=== PATIENT | female | born 1990 | race Caucasian/White ===

== ENCOUNTER 2016-11-24 09:34 | Emergency (ER) | payer MEDICAID ==
[~2016-11-24] VITALS: Ht 167.6 cm; Wt 59.0 kg
[2016-11-24 09:36] VITALS: BP 128/77
[2016-11-24] MEDS ORDERED: ADVI200C5 PO (09:39)
[2016-11-24] MEDS ORDERED: AMOX500C PO (10:14)
[2016-11-24] MEDS ORDERED: AMOXICILLIN 500 MG CAP PO ONE (10:15)
[2016-11-24] MEDS ORDERED: ACETAMINOPHEN 325 MG TAB PO ONE (10:15)
== END 2016-11-24 10:33 | disposition home or self-care (01) ==
LOC: M ED 10:25
DX: H65.191 Other acute nonsuppurative otitis media, right ear (principal); J06.9 Acute upper respiratory infection, unspecified

== ENCOUNTER 2016-12-06 03:48 | Emergency (ER) | payer MEDICAID, OTHER ==
[~2016-12-06] VITALS: Ht 167.6 cm; Wt 59.0 kg
[~2016-12-06 03:48] MED LIST: ADVI200C5 PO; AMOX500C PO
[2016-12-06] MEDS ORDERED: IBUPROFEN 800 MG TAB PO ONE (06:30)
[2016-12-06] MEDS ORDERED: AUGMENTIN 875 MG TAB PO ONE (06:30)
[2016-12-06] MEDS ORDERED: CIPROFLOXACIN HC OTIC SUSPENSION AD ONE (06:30)
[2016-12-06] MEDS ORDERED: CIPRHCOTIC AD (06:32)
[2016-12-06] MEDS ORDERED: AUGM875T27 PO (06:32)
[2016-12-06] MEDS ORDERED: IBUP80TA PO (06:32)
[2016-12-06 06:56] VITALS: BP 129/79
== END 2016-12-06 06:59 | disposition home or self-care (01) ==
LOC: M ED 04:43
DX: H66.93 Otitis media, unspecified, bilateral (principal); H60.91 Unspecified otitis externa, right ear

== ENCOUNTER → 2016-12-21 | Outpatient (REF) | payer OTHER ==
[~2016-12-21] MED LIST changes: +AUGM875T27 PO; +CIPRHCOTIC AD; +IBUP80TA PO
[2016-12-21 20:04] LABS: ALBUMIN 4.1 GM/DL (3.2-5.2); ALBUMIN/GLOBULIN RATIO 1.41 (1.00-1.93); ALKALINE PHOSPHATASE 95 U/L (45-117); ALT/SGPT 16 U/L (12-78); ANION GAP 7 MEQ/L (8-16); AST/SGOT 10 U/L (15-37); BILIRUBIN,TOTAL 0.4 MG/DL (0.2-1.0); BLOOD UREA NITROGEN 6 MG/DL (7-18); CALCIUM LEVEL 8.9 MG/DL (8.5-10.1); CARBON DIOXIDE LEVEL 26 MEQ/L (21-32); CHLORIDE LEVEL 108 MEQ/L (98-107); CHOLESTEROL LEVEL 154 MG/DL (<200); CREATININE FOR GFR 0.71 MG/DL (0.55-1.02); GLOMERULAR FILTRATION RATE > 60.0 (>60); GLUCOSE, FASTING 70 MG/DL (70-105); POTASSIUM SERUM 3.7 MEQ/L (3.5-5.1); SODIUM LEVEL 141 MEQ/L (136-145); TRIGLYCERIDES LEVEL 77 MG/DL (<150)
== END ==
LOC: M LAB REF 16:40
PROVIDERS: ATTEND Family Medicine Addiction Medicine
DX: Z00.01 Encounter for general adult medical examination with abnormal findings (principal)

== ENCOUNTER → 2017-01-30 | Outpatient (CLI) | payer OTHER ==
[~2017-01-30] MED LIST changes: -AUGM875T27 PO; +AUGM875T28 PO; +CHAN1PAK9; +MIREIUD IU
[2017-01-30 13:38] LABS: THYROXINE (T4) 9.7 UG/DL (4.5-12.0)
== END ==
LOC: M SMT 09:15
PROVIDERS: ATTEND Advanced Practice Midwife
DX: F32.89 Other specified depressive episodes (principal); Z11.3 Encounter for screening for infections with a predominantly sexual mode of transmission

== ENCOUNTER → 2017-01-31 | Outpatient (CLI) | payer OTHER ==
--- NOTE | 2017-02-01 06:38 | REP ---
Clinical: Dyspareunia . Technique: Transabdominal pelvic ultrasound followed by transvaginal examination for better evaluation of the endometrium and adnexa with color Doppler evaluation of the ovaries. Findings: Bladder is under distended and grossly unremarkable. Normal anteverted uterus measures 8.2 x 3.2 x 4.9 cm. The endometrial complex measures 4.5 mm thickness. No discrete uterine or endometrial abnormalities are appreciated. IUD is identified with tip extending to the fundus. Bilateral ovaries are normal in appearance and vascularity without evidence for torsion. Right ovary measures 4.4 x 2.2 x 3.6 cm ; R I = 0.59 . Left ovary measures 4.0 x 2.5 x 3.5 cm ; R I = 0.45 . No pelvic fluid or adnexal mass lesion . Impression: 1. normal pelvic ultrasound. 2. IUD in satisfactory position. Signed by Thomas Baumann MD 02/01/2017 06:30 A
== END ==
LOC: M RAD 14:00
PROVIDERS: ATTEND Advanced Practice Midwife
DX: N94.12 Deep dyspareunia (principal)

== ENCOUNTER 2017-03-29 06:14 | Emergency (ER) | payer OTHER ==
[~2017-03-29] VITALS: Ht 167.6 cm; Wt 59.1 kg
[~2017-03-29 06:14] MED LIST changes: -CHAN1PAK9; -MIREIUD IU
[2017-03-29] MEDS ORDERED: CHAN1PAK9 (06:32)
[2017-03-29] MEDS ORDERED: MIREIUD IU (06:34)
[2017-03-29] MEDS ORDERED: diphenhydrAMINE INJ 50MG/ML VIAL (J1200) IV ONE (07:00)
[2017-03-29] MEDS ORDERED: NS 1,000 ML IV ONE (07:00)
[2017-03-29] MEDS ORDERED: KETOROLAC 30 MG/ML VIAL (J1885) IV ONE (07:00)
[2017-03-29] MEDS ORDERED: METOCLOPRAMIDE INJ 10MG/2ML VIAL (J2765) IV ONE (07:00)
[2017-03-29 07:27] LABS: BASO # 0.1 10^3/uL (0.0-0.2); BASO % 0.5 % (0.0-1.0); EOS # 0.2 10^3/uL (0.0-0.50); EOS % 2.5 % (0.0-3.0); IMMATURE GRANULOCYTE % 0.3 % (0-0); LYMPH # 1.8 10^3/uL (1.5-6.5); LYMPH % 18.2 % (24.0-44.0); MEAN CORPUSCULAR HEMOGLOBIN 29.2 pg (27.0-33.0); MEAN CORPUSCULAR HGB CONC 33.7 g/dl (32.0-36.5); MEAN CORPUSCULAR VOLUME 86.7 fl (80.0-96.0); MONO # 0.5 10^3/uL (0.0-0.8); MONO % 5.6 % (0.0-5.0); NEUTROPHILS % 72.9 % (36.0-66.0); PLATELET COUNT, AUTOMATED 205 10^3/uL (150-450); RED CELL DISTRIBUTION WIDTH 13.2 % (11.5-14.5); WHITE BLOOD COUNT 9.6 10^3/uL (4.0-10.0)
[2017-03-29 07:43] LABS: ANION GAP 6 MEQ/L (8-16); BLOOD UREA NITROGEN 7 MG/DL (7-18); CALCIUM LEVEL 8.5 MG/DL (8.5-10.1); CARBON DIOXIDE LEVEL 27 MEQ/L (21-32); CHLORIDE LEVEL 111 MEQ/L (98-107); CREATININE FOR GFR 0.55 MG/DL (0.55-1.02); GLOMERULAR FILTRATION RATE > 60.0 (>60); GLUCOSE, FASTING 85 MG/DL (70-105); POTASSIUM SERUM 3.7 MEQ/L (3.5-5.1); SODIUM LEVEL 144 MEQ/L (136-145)
[2017-03-29] MEDS ORDERED: MORPHINE 4 MG/ML 1ML SYRINGE IV ONE (08:30)
[2017-03-29 09:42] VITALS: BP 119/63
== END 2017-03-29 09:48 | disposition home or self-care (01) ==
LOC: M ED 06:14
DX: G43.909 Migraine, unspecified, not intractable, without status migrainosus (principal); F17.200 Nicotine dependence, unspecified, uncomplicated
CPT/HCPCS: 80048; 85025; 96374; 96375; 99283; J1200; J1885; J2765

== ENCOUNTER 2019-01-03 14:26 | Emergency (ER) | payer OTHER ==
[~2019-01-03] VITALS: Ht 167.6 cm; Wt 54.8 kg
[~2019-01-03 14:26] MED LIST changes: +CHAN1PAK13; +MIRE1IUD IU
[2019-01-03 15:16] LABS: BASO # 0.1 10^3/uL (0.0-0.2); BASO % 0.3 % (0.0-1.0); EOS # 0.1 10^3/uL (0.0-0.50); EOS % 0.6 % (0.0-3.0); HEMATOCRIT 39.5 % (36.0-47.0); HEMOGLOBIN 13.1 g/dl (12.0-15.5); LYMPH % 5.7 % (24.0-44.0); MEAN CORPUSCULAR HEMOGLOBIN 30.8 pg (27.0-33.0); MEAN CORPUSCULAR HGB CONC 33.2 g/dl (32.0-36.5); MEAN CORPUSCULAR VOLUME 92.7 fl (80.0-96.0); MONO # 0.5 10^3/uL (0.0-0.8); NEUTROPHILS # 15.6 10^3/uL (1.8-7.7); PLATELET COUNT, AUTOMATED 177 10^3/uL (150-450); RED BLOOD COUNT 4.26 10^6/uL (4.00-5.40); WHITE BLOOD COUNT 17.3 10^3/uL (4.0-10.0)
[2019-01-03 15:40] LABS: ALBUMIN 3.3 GM/DL (3.2-5.2); ALT/SGPT 35 U/L (12-78); BILIRUBIN,TOTAL 0.6 MG/DL (0.2-1.0); BLOOD UREA NITROGEN 6 MG/DL (7-18); CARBON DIOXIDE LEVEL 26 MEQ/L (21-32); CHLORIDE LEVEL 111 MEQ/L (98-107); CREATININE FOR GFR 0.66 MG/DL (0.55-1.30); GLOMERULAR FILTRATION RATE > 60.0 (>60); GLUCOSE, FASTING 92 MG/DL (70-100); POTASSIUM SERUM 3.6 MEQ/L (3.5-5.1); SODIUM LEVEL 144 MEQ/L (136-145); TOTAL PROTEIN 6.3 GM/DL (6.4-8.2)
--- NOTE | 2019-01-03 15:42 | REP ---
Clinical: Cough and fever Comparison: none . Technique: PA and lateral. Findings: The mediastinum and cardiac silhouette are normal. The lung noriega are clear and without acute consolidation, effusion, or pneumothorax. The skeletal structures are intact and normal. Impression: 1. No acute cardiopulmonary process. Electronically Signed by Thomas Baumann MD 01/03/2019 03:34 P
--- NOTE | 2019-01-03 15:56 | ECGEPIP ---
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
[2019-01-03] MEDS ORDERED: AUGM875T28 PO (16:44)
[2019-01-03] MEDS ORDERED: DEBR6.5S4 OTIC (16:45)
[2019-01-03 16:58] VITALS: BP 135/94
== END 2019-01-03 16:59 | disposition home or self-care (01) ==
LOC: M ED 14:26
DX: H66.91 Otitis media, unspecified, right ear (principal); H61.22 Impacted cerumen, left ear; Z72.0 Tobacco use

== ENCOUNTER 2019-08-05 17:48 | Emergency (ER) | payer OTHER ==
[~2019-08-05] VITALS: Ht 167.6 cm; Wt 58.4 kg
[~2019-08-05 17:48] MED LIST changes: +DEBR6.5S4 OTIC
[2019-08-05] MEDS ORDERED: IBUPROFEN 800 MG TAB PO ONE (21:00)
[2019-08-05] MEDS ORDERED: TESS100C PO (21:41)
[2019-08-05] MEDS ORDERED: IBUP-1022 PO (21:41)
[2019-08-05] MEDS ORDERED: BENZONATATE 100 MG CAP PO ONE (21:45)
[2019-08-05 21:51] VITALS: BP 134/63
--- NOTE | 2019-08-06 02:05 | REP ---
Clinical: Chest pain and cough . Comparison: 01/03/2019 . Technique: PA and lateral. Findings: The mediastinum and cardiac silhouette are normal. The lung noriega are clear and without acute consolidation, effusion, or pneumothorax. The skeletal structures are intact and normal. Impression: 1. No acute cardiopulmonary process. Electronically Signed by Thomas Baumann MD 08/06/2019 01:57 A
== END 2019-08-05 21:52 | disposition home or self-care (01) ==
LOC: M ED 17:48
DX: M94.0 Chondrocostal junction syndrome [Tietze] (principal); J06.9 Acute upper respiratory infection, unspecified; R05 Cough; F17.200 Nicotine dependence, unspecified, uncomplicated

== ENCOUNTER 2020-01-19 09:31 | Inpatient (IN) | payer OTHER ==
[~2020-01-19] VITALS: Ht 167.6 cm; Wt 55.8 kg
[~2020-01-19 09:31] MED LIST changes: +IBUP-1022 PO; +TESS100C PO
[2020-01-19] MEDS ORDERED: ACETAMINOPHEN 500 MG TAB PO ONE (10:00)
[2020-01-19] MEDS ORDERED: NS 1,000 ML IV ONE (10:00)
[2020-01-19 10:27] LABS: BASO # 0.1 10^3/uL (0.0-0.2); BASO % 0.3 % (0.0-1.0); HEMOGLOBIN 14.4 g/dl (12.0-15.5); LYMPH # 1.1 10^3/uL (1.5-5.0); LYMPH % 5.2 % (24.0-44.0); MEAN CORPUSCULAR HEMOGLOBIN 30.6 pg (27.0-33.0); MEAN CORPUSCULAR HGB CONC 32.7 g/dl (32.0-36.5); MEAN CORPUSCULAR VOLUME 93.4 fl (80.0-96.0); MONO # 1.1 10^3/uL (0.0-0.8); MONO % 5.1 % (0.0-5.0); NEUTROPHILS # 19.1 10^3/uL (1.5-8.5); NEUTROPHILS % 88.6 % (36.0-66.0); PLATELET COUNT, AUTOMATED 153 10^3/uL (150-450); RED BLOOD COUNT 4.71 10^6/uL (4.00-5.40); WHITE BLOOD COUNT 21.6 10^3/uL (4.0-10.0)
[2020-01-19 10:49] LABS: ALBUMIN 3.3 GM/DL (3.2-5.2); BILIRUBIN,DIRECT 0.2 MG/DL (0.0-0.2); BILIRUBIN,TOTAL 0.8 MG/DL (0.2-1.0); TOTAL PROTEIN 7.2 GM/DL (6.4-8.2)
[2020-01-19] MEDS ORDERED: ISOVUE-370 76% 100ML VIAL As Ordered ONE (10:51)
[2020-01-19] MEDS ORDERED: NS IV ONE (11:00)
[2020-01-19] MEDS ORDERED: IBUPROFEN 800 MG TAB PO ONE (11:00)
[2020-01-19] MEDS ORDERED: cefTRIAXone SOD 2 GM in D5W MINI-BAG PLUS 50 ML IV ONE (11:00)
[2020-01-19] MEDS ORDERED: POTASSIUM CHLORIDE 10 MEQ SR TABLET PO ONE (11:30)
[2020-01-19] MEDS ORDERED: MORPHINE 4 MG/ML 1ML VIAL/SYRINGE (J2270) IV ONE (11:30)
[2020-01-19] MEDS ORDERED: ONDANSETRON 4MG/2ML VIAL IV ONE (11:30)
--- NOTE | 2020-01-19 12:14 | REP ---
REASON FOR EXAM: Flank pain. There are no priors. CONTRAST: 100 mL Isovue-370. The lung bases are clear. Abnormal asymmetric low density is seen in each kidney. There is a tiny amount of fluid in Morison pouch. There is a tiny amount of fluid in the right paracolic gutter. There is a trace amount of free pelvic fluid. Multiple but nonenlarged para-aortic lymph nodes are present. The abdominal aorta is within normal limits. The liver, gallbladder, spleen, pancreas, and adrenal glands are unremarkable. The bowel loops and their mesenteries are within normal limits. The osseous structures are within normal limits. IMPRESSION: Findings consistent with bilateral pyelonephritis and a small amount of free fluid, as described above. Electronically Signed by Tristan Mendes DO 01/19/2020 12:20 P
--- NOTE | 2020-01-19 12:16 | HPEPDOC ---
General Date of Admission 01/19/20 Date of Service: Jan 19, 2020 Chief Complaint The patient is a 29-year-old female admitted with a reason for visit of Flank Pain. Source: Patient Exam Limitations: No limitations Timing/Duration: Day(s) Severity: Moderate Associated Symptoms: Malaise History of Present Illness Patient is 29 years old female with past medical history of alcohol abuse, UTI presented to the hospital with fever and bilateral flank pain. Patient stated that for past 5-6 days she's been having severe bilateral flank pain associated with fever and chills. Patient also noticed burning urination. Of note patient had multiple episodes of UTI in the past. In emergency room patient was found to have fever, tachycardia, leukocytosis of 21, urine analysis positive for pyuria. Home Medications No Active Prescriptions or Reported Meds Allergies Coded Allergies: No Known Allergies (Verified Allergy, Unknown, 01/03/19) Past Medical History Medical History Alcohol abuse, recurrent UTI Family History Both parents have diabetes Social History * Smoker: current smoker Alcohol: sober (for past 7 months) Drugs: denies A-FIB/CHADSVASC A-FIB History Current/History of A-Fib/PAF?: No Current PO Anticoag Therapy: No Review of Systems Constitutional: Reports: Chills, Fever, Malaise, Fatigue Eyes: Denies: Pain ENT: Denies: Head Aches Skin: Denies: Rash, Lesions Pulmonary: Denies: Dyspnea Cardiovascular: Denies: Chest Pain Gastrointestinal: Reports: Nausea Genitourinary: Reports: Dysuria, Frequency Hematologic: Denies: Bruising Endocrine: Denies: Polydipsia, Polyphagia Neurological: Denies: Weakness Psych: Reports: Mood Normal Physical Examination General Exam: Positive: Alert, Cooperative Eye Exam: Positive: PERRLA ENT Exam: Positive: Atraumatic Neck Exam: Positive: Supple; Negative: JVD Chest Exam: Positive: Clear to auscultation Heart Exam: Positive: Tachycardic Telemetry: Positive: Sinus Abdomen Exam: Positive: Normal bowel sounds, Other (bilateral flank tenderness) Extremity Exam: Negative: Clubbing, Cyanosis Skin Exam: Negative: Rash, Breakdown Neuro Exam: Positive: Normal Gait Psych Exam: Positive: Mental status NL Vital Signs Vital Signs Date Time Temp Pulse Resp B/P (MAP) Pulse Ox O2 Delivery O2 Flow Rate FiO2 01/19/20 12:03 16 97 Room Air 01/19/20 11:44 100.5 80 108/56 (73) Laboratory Data Labs 24H Laboratory Tests 2 01/19/20 09:56: Urine Color YELLOW, Urine Appearance CLOUDYH, Urine pH 5.0, Urine Specific [place] 1.011, Urine Protein 2+H, Urine Glucose (UA) NEGATIVE, Urine Ketones NEGATIVE, Urine Blood 1+H, Urine Nitrite NEGATIVE, Urine Bilirubin NEGATIVE, Urine Urobilinogen 0.2, Urine Leukocyte Esterase 3+H, Urine WBC (Auto) TNTCH, Urine RBC (Auto) 23H, Urine Hyaline Casts (Auto) 0, Urine Bacteria (Auto) 2+H, Urine Squamous Epithelial Cells 1, Urine Renal Epithelial Cells 2, Urine Mucus (Auto) SMALL, Urine Sperm (Auto) 01/19/20 10:07: Immature Granulocyte % (Auto) 0.8, Neutrophils (%) (Auto) 88.6H, Lymphocytes (%) (Auto) 5.2L, Monocytes (%) (Auto) 5.1H, Eosinophils (%) (Auto) 0.0, Basophils (%) (Auto) 0.3, Neutrophils # (Auto) 19.1H, Lymphocytes # (Auto) 1.1L, Monocytes # (Auto) 1.1H, Eosinophils # (Auto) 0.0, Basophils # (Auto) 0.1, Nucleated Red Blood Cells % (auto) 0.0, Lactic Acid Level 1.3, Total Bilirubin 0.8, Direct Bilirubin 0.2, Aspartate Amino Transf (AST/SGOT) 13, Alanine Aminotransferase (ALT/SGPT) 13, Alkaline Phosphatase 112, Total Protein 7.2, Albumin 3.3, Albumin/Globulin Ratio 0.8L, Amylase Level 11L, Lipase 44L 01/19/20 10:08: POC Glucose (Misc Panel) 108H, POC Sodium (Misc Panel) 137, POC Potassium (Misc Panel) 3.4L, POC Chloride (Misc Panel) 98, POC Total CO2 (Misc Panel) 22.0L, POC Blood Urea Nitrogen (Misc Panel 9, POC Ionized Calcium (Misc Panel) 4.2L, POC Creatinine (Misc Panel) 1.1, POC Hematocrit (Misc Panel) 48.0 01/19/20 10:11: POC Beta HCG, Quantitative < 5.0 CBC/BMP Laboratory Tests 01/19/20 10:07 Microbiology Microbiology 01/19/20 Blood Culture, Received Pending 01/19/20 Blood Culture, Received Pending 01/19/20 Urine Culture, Received Pending Assessment/Plan Patient is 29 years old female with past medical history of alcohol abuse, UTI presented to the hospital with fever and bilateral flank pain. Patient stated that for past 5-6 days she's been having severe bilateral flank pain associated with fever and chills. Patient also noticed burning urination. Of note patient had multiple episodes of UTI in the past. In emergency room patient was found to have fever, tachycardia, leukocytosis of 21, urine analysis positive for pyuria. Problems (1) Sepsis Status: Acute Problem Text: Secondary to acute pyelonephritis Patient developed leukocytosis, fever, tachycardia Urine culture, blood culture Ceftriaxone IV IV fluid (2) Pyelonephritis Status: Acute Problem Text: CT abdomen pelvis negative for hydronephrosis See above Plan / VTE VTE Prophylaxis Ordered?: Yes SEJAL GUIDRY DO Jan 19, 2020 12:16
[2020-01-19] MEDS: NS 1,000 ML IV SCH (12:21)
[2020-01-19 16:15] VITALS: BP 108/59
[2020-01-19] MEDS: ACETAMINOPHEN TAB 650MG DOSE (2X325MG) PO PRN ×2 (17:16→21:26)
[2020-01-19] MEDS: traMADol 50 MG TAB PO PRN (18:46)
[2020-01-19 20:00] VITALS: BP 119/59
[2020-01-19] MEDS: HEPARIN SOD (PORCINE) 5000UNITS/ML 1ML VIAL/SYRINGE SC SCH (21:00)
[2020-01-19 22:38] LABS: CHLAMYDIA DNA AMPLIFICATION NEGATIVE (NEGATIVE); GC DNA AMPLIFICATION NEGATIVE (NEGATIVE)
[2020-01-19] MEDS ORDERED: ONDANSETRON 4MG/2ML VIAL IV PRN (23:00)
[2020-01-19] MEDS ORDERED: MORPHINE 2 MG/ML 1ML VIAL (J2270) IV ONE (23:15)
[2020-01-19 23:25] VITALS: BP 120/64
[2020-01-20 01:00] VITALS: BP 112/58
[2020-01-20] MEDS: traMADol 50 MG TAB PO PRN ×3 (01:12→19:00)
[2020-01-20] MEDS: NS 1,000 ML IV SCH ×5 (01:12→21:59)
[2020-01-20 04:00] VITALS: BP 118/63
[2020-01-20] MEDS: ACETAMINOPHEN TAB 650MG DOSE (2X325MG) PO PRN (04:08)
[2020-01-20 08:00] VITALS: BP 108/58
[2020-01-20 08:30] LABS: MEAN CORPUSCULAR HEMOGLOBIN 30.6 pg (27.0-33.0); MEAN CORPUSCULAR HGB CONC 31.7 g/dl (32.0-36.5); MEAN CORPUSCULAR VOLUME 96.5 fl (80.0-96.0); PLATELET COUNT, AUTOMATED 118 10^3/uL (150-450); RED BLOOD COUNT 3.73 10^6/uL (4.00-5.40); WHITE BLOOD COUNT 16.2 10^3/uL (4.0-10.0)
[2020-01-20 08:32] LABS: HEMOGLOBIN 11.4 g/dl (12.0-15.5)
[2020-01-20 08:57] LABS: BLOOD UREA NITROGEN 9 MG/DL (7-18); CALCIUM LEVEL 7.4 MG/DL (8.5-10.1); CARBON DIOXIDE LEVEL 23 MEQ/L (21-32); CHLORIDE LEVEL 112 MEQ/L (98-107); CREATININE FOR GFR 0.75 MG/DL (0.55-1.30); GLOMERULAR FILTRATION RATE > 60.0 (>60); GLUCOSE, FASTING 118 MG/DL (70-100); MAGNESIUM LEVEL 1.7 MG/DL (1.8-2.4); POTASSIUM SERUM 3.5 MEQ/L (3.5-5.1); SODIUM LEVEL 141 MEQ/L (136-145)
[2020-01-20] MEDS: HEPARIN SOD (PORCINE) 5000UNITS/ML 1ML VIAL/SYRINGE SC SCH ×2 (09:00→20:25)
[2020-01-20] MEDS ORDERED: cefTRIAXone SOD 1 GM in D5W MINI-BAG PLUS 50 ML IV SCH (09:00)
[2020-01-20] MEDS: cefTRIAXone SOD 1 GM in D5W MINI-BAG PLUS 50 ML IV SCH ×2 (09:33→20:24)
[2020-01-20 12:00] VITALS: BP 119/57
[2020-01-20] MEDS ORDERED: POTASSIUM CHLORIDE 10 MEQ SR TABLET PO ONE (12:15)
[2020-01-20] MEDS ORDERED: MAGNESIUM CHLORIDE 64 MG TABCR (SLO MAG) PO ONE (14:00)
[2020-01-20 16:00] VITALS: BP 119/56
--- NOTE | 2020-01-20 17:06 | IPNPDOC ---
Text Note Date of Service The patient was seen on 01/20/20. NOTE SUBJECTIVE: Patient was seen and examined this morning lying comfortably in bed. She states she continues to have bilateral midback pain. She also has some pelvic discomfort. She states she has decreased appetite. She denies any dysuria but notes urinary frequency. She has not noticed any fevers overnight. OBJECTIVE: VITAL SIGNS: See below GENERAL: Alert, comfortable, in no acute distress HEENT: Normocephalic, atraumatic, PERRLA, EOMI, moist mucous membranes CARDIOVASCULAR: Regular rate and rhythm, normal S1 and S2. No murmurs, rubs, or gallops RESPIRATORY: Clear to auscultation bilaterally with equal air entry bilaterally. No wheezing, rhonchi, or rales. ABDOMEN: Soft, nondistended, bowel sounds present, tenderness over the suprapubic region. Bilateral CVA tenderness present. EXTREMITIES: No cyanosis or edema. Pulses 2+/4 in bilateral upper and lower extremities SKIN: [place], warm, dry NEUROLOGIC: Alert and oriented x3 to person, place and time. No focal deficits appreciated PSYCHIATRIC: Mood and affect appropriate ASSESSMENT/PLAN: # Sepsis secondary to acute pyelonephritis. Continue antibiotic coverage with IV ceftriaxone, urine culture pending. Continue IV fluids. One blood culture positive for gram-negative rods. Repeat blood cultures 2 ordered. Morphine and tramadol for pain. Zofran for nausea. CT abdomen/pelvis negative for hydronephrosis DVT prophylaxis: Subcutaneous heparin ordered and patient refusing, teds and scds ordered Disposition: ILenard, have independently examined this patient and performed my own physical exam, as well as reviewed the documentation. I have discussed in detail with the resident / student the findings and plan of treatment as documented by the resident / student. I agree with their findings and treatment plan. I will continue to follow the patient during this hospital stay. VS,Fishbone, I+O VS, Fishbone, I+O Laboratory Tests 01/20/20 08:05 Vital Signs Date Time Temp Pulse Resp B/P (MAP) Pulse Ox O2 Delivery O2 Flow Rate FiO2 01/20/20 16:00 99.3 85 18 119/56 (77) 98 Room Air I&O- Last 24 Hours up to 6 AM 01/20/20 06:00 Intake Total 4553 ml Output Total 1350 ml Balance 3203 ml ROSALIE DING D.O. Jan 20, 2020 17:06 LENARD GUIDRY DO Jan 21, 2020 13:16
[2020-01-20 20:00] VITALS: BP 120/61
[2020-01-21] VITALS: BP 131/74
[2020-01-21] MEDS: ACETAMINOPHEN TAB 650MG DOSE (2X325MG) PO PRN (02:12)
[2020-01-21] MEDS: MORPHINE 2 MG/ML 1ML VIAL (J2270) IV PRN (02:12)
[2020-01-21] MEDS: NS 1,000 ML IV SCH ×3 (04:40→20:01)
[2020-01-21 07:50] LABS: BASO % 0.2 % (0.0-1.0); EOS % 0.5 % (0.0-3.0); HEMATOCRIT 31.8 % (36.0-47.0); HEMOGLOBIN 10.2 g/dl (12.0-15.5); LYMPH # 0.9 10^3/uL (1.5-5.0); LYMPH % 10.1 % (24.0-44.0); MEAN CORPUSCULAR HEMOGLOBIN 30.8 pg (27.0-33.0); MEAN CORPUSCULAR HGB CONC 32.1 g/dl (32.0-36.5); MEAN CORPUSCULAR VOLUME 96.1 fl (80.0-96.0); MONO # 0.6 10^3/uL (0.0-0.8); MONO % 6.5 % (0.0-5.0); NEUTROPHILS # 6.9 10^3/uL (1.5-8.5); NEUTROPHILS % 82.3 % (36.0-66.0); RED BLOOD COUNT 3.31 10^6/uL (4.00-5.40); WHITE BLOOD COUNT 8.4 10^3/uL (4.0-10.0)
[2020-01-21 08:00] VITALS: BP 120/72
[2020-01-21 08:00] LABS: PLATELET COUNT, AUTOMATED 97 10^3/uL (150-450)
[2020-01-21 08:12] LABS: BLOOD UREA NITROGEN 8 MG/DL (7-18); CALCIUM LEVEL 7.5 MG/DL (8.5-10.1); CARBON DIOXIDE LEVEL 24 MEQ/L (21-32); CHLORIDE LEVEL 115 MEQ/L (98-107); CREATININE FOR GFR 0.59 MG/DL (0.55-1.30); GLOMERULAR FILTRATION RATE > 60.0 (>60); GLUCOSE, FASTING 97 MG/DL (70-100); MAGNESIUM LEVEL 1.6 MG/DL (1.8-2.4); POTASSIUM SERUM 3.9 MEQ/L (3.5-5.1); SODIUM LEVEL 144 MEQ/L (136-145)
[2020-01-21] MEDS: cefTRIAXone SOD 1 GM in D5W MINI-BAG PLUS 50 ML IV SCH ×2 (08:26→20:00)
[2020-01-21] MEDS: HEPARIN SOD (PORCINE) 5000UNITS/ML 1ML VIAL/SYRINGE SC SCH ×2 (09:00→20:19)
[2020-01-21] MEDS: traMADol 50 MG TAB PO PRN ×2 (11:00→20:00)
[2020-01-21] MEDS ORDERED: PILL CUTTER 1 EACH XX PRN (13:30)
[2020-01-21] MEDS ORDERED: MAGNESIUM GLUCONATE 500 MG TAB PO ONE (14:00)
--- NOTE | 2020-01-21 15:17 | IPNPDOC ---
Text Note Date of Service The patient was seen on 01/21/20. NOTE SUBJECTIVE: Patient was seen and examined this morning lying comfortably in bed. She also has some flank pain and pelvic discomfort, improved from yesterday. Her appetite has improved and she states she is eating better today. She denies any dysuria and states she continues to have urinary frequency, she remains on IV fluids. She did have a fever overnight. OBJECTIVE: VITAL SIGNS: See below GENERAL: Alert, comfortable, in no acute distress HEENT: Normocephalic, atraumatic, PERRLA, EOMI, moist mucous membranes CARDIOVASCULAR: Regular rate and rhythm, normal S1 and S2. No murmurs, rubs, or gallops RESPIRATORY: Clear to auscultation bilaterally with equal air entry bilaterally. No wheezing, rhonchi, or rales. ABDOMEN: Soft, nondistended, bowel sounds present, tenderness over the suprapubic region. Bilateral CVA tenderness present. EXTREMITIES: No cyanosis or edema. Pulses 2+/4 in bilateral upper and lower extremities SKIN: [place], warm, dry NEUROLOGIC: Alert and oriented x3 to person, place and time. No focal deficits appreciated PSYCHIATRIC: Mood and affect appropriate ASSESSMENT/PLAN: # Sepsis secondary to acute pyelonephritis. Continue antibiotic coverage with IV ceftriaxone day #2 of 10, urine culture grew E. coli sensitive to ceftriaxone. One blood culture positive for gram-negative rods, full culture pending. Repeat blood cultures 2 negative at 24 hours. Morphine and tramadol for pain. Zofran for nausea. Continue IV fluids. CT abdomen/pelvis negative for hydronephrosis # Gram negative bacteremia One blood culture positive for gram-negative rods, full culture pending. Repeat blood cultures 2 negative at 24 hours. - likely source is pyelonephritis, urine culture grew E. coli - antibiotic coverage with IV ceftriaxone day #2 # Hypomagnesemia -replace as indicated DVT prophylaxis: Subcutaneous heparin ordered and patient refusing, teds and scds ordered Disposition: pending clinical improvement and results of positive blood culture VS,Sylvie, I+O VS, Sylvie, I+O Laboratory Tests 01/21/20 07:23 Vital Signs Date Time Temp Pulse Resp B/P (MAP) Pulse Ox O2 Delivery O2 Flow Rate FiO2 01/21/20 11:00 97.9 85 18 120/72 100 Room Air I&O- Last 24 Hours up to 6 AM 01/21/20 06:00 Intake Total 5620 ml Output Total 3350 ml Balance 2270 ml ROSALIE DING D.O. Jan 21, 2020 15:17
[2020-01-21 16:00] VITALS: BP 141/82
[2020-01-22] VITALS: BP 131/73
[2020-01-22] MEDS: MORPHINE 2 MG/ML 1ML VIAL (J2270) IV PRN (00:54)
[2020-01-22] MEDS: NS 1,000 ML IV SCH ×2 (02:36→08:48)
[2020-01-22] MEDS: traMADol 50 MG TAB PO PRN (07:54)
[2020-01-22 08:00] VITALS: BP 134/85
[2020-01-22 08:01] LABS: BASO % 0.2 % (0.0-1.0); EOS # 0.1 10^3/uL (0.0-0.5); EOS % 1.2 % (0.0-3.0); HEMATOCRIT 29.1 % (36.0-47.0); HEMOGLOBIN 9.5 g/dl (12.0-15.5); LYMPH # 0.8 10^3/uL (1.5-5.0); LYMPH % 12.8 % (24.0-44.0); MEAN CORPUSCULAR HEMOGLOBIN 30.4 pg (27.0-33.0); MEAN CORPUSCULAR HGB CONC 32.6 g/dl (32.0-36.5); MEAN CORPUSCULAR VOLUME 93.3 fl (80.0-96.0); MONO # 0.6 10^3/uL (0.0-0.8); MONO % 9.1 % (0.0-5.0); NEUTROPHILS # 4.9 10^3/uL (1.5-8.5); NEUTROPHILS % 75.8 % (36.0-66.0); PLATELET COUNT, AUTOMATED 113 10^3/uL (150-450); RED BLOOD COUNT 3.12 10^6/uL (4.00-5.40); WHITE BLOOD COUNT 6.5 10^3/uL (4.0-10.0)
[2020-01-22 08:25] LABS: BLOOD UREA NITROGEN 3 MG/DL (7-18); CALCIUM LEVEL 7.6 MG/DL (8.5-10.1); CARBON DIOXIDE LEVEL 22 MEQ/L (21-32); CHLORIDE LEVEL 115 MEQ/L (98-107); GLOMERULAR FILTRATION RATE > 60.0 (>60); GLUCOSE, FASTING 91 MG/DL (70-100); MAGNESIUM LEVEL 1.4 MG/DL (1.8-2.4); POTASSIUM SERUM 3.2 MEQ/L (3.5-5.1); SODIUM LEVEL 144 MEQ/L (136-145)
[2020-01-22] MEDS: cefTRIAXone SOD 1 GM in D5W MINI-BAG PLUS 50 ML IV SCH (08:47)
[2020-01-22] MEDS: HEPARIN SOD (PORCINE) 5000UNITS/ML 1ML VIAL/SYRINGE SC SCH (09:00)
[2020-01-22] MEDS ORDERED: LEVO500T3 PO (10:08)
[2020-01-22] MEDS ORDERED: POTASSIUM CHLORIDE 10 MEQ SR TABLET PO ONE (11:00)
[2020-01-22] MEDS ORDERED: MAG SULF 1GM/100ML (MAG RUN) 1 GM in IV 1 EA IV SCH (13:00)
--- NOTE | 2020-01-22 17:56 | DS.PDOC ---
Discharge Summary General Date of Admission Jan 19, 2020 at 12:05 Date of Discharge 01/22/2020 Attending Physician: SEJAL GUIDRY DO Discharge Summary PROCEDURES PERFORMED DURING STAY: None. ADMITTING DIAGNOSES: 1. Sepsis. 2. Pyelonephritis DISCHARGE DIAGNOSES: 1. Sepsis, resolved 2. Pyelonephritis, improving COMPLICATIONS/CHIEF COMPLAINT: Pyelonephritis,Sepsis. HISTORY OF PRESENT ILLNESS: 29-year-old female presented to the hospital with 5- 6 days of severe bilateral flank pain with associated fever and chills. She has also noticed burning with urination. She has a history of multiple UTIs in the past. On evaluation in the emergency room she was found to have a fever, tachycardia, leukocytosis of 21, and UA positive for pyuria. HOSPITAL COURSE: The patient was admitted to the hospital and started on IV antibiotics with ceftriaxone and IV fluids for sepsis. Urine culture was sent and resulted with Escherichia coli. Blood cultures 2 were sent and one came back positive for Escherichia coli. Repeat blood cultures were negative at [address] of the abdomen and pelvis was negative for hydronephrosis. The patient had recurrent fever during her admission which resolved greater than 24 hours prior to discharge. Her symptoms improved throughout her admission. On the day of discharge she was afebrile with improvement of her pain and resolution of her dysuria. She was discharged on a 10 day course of ofloxacin and instructed to obtain a repeat urinalysis after she completes the full course of antibiotics. DISCHARGE MEDICATIONS: Please see below. ALLERGIES: Please see below. PHYSICAL EXAMINATION ON DISCHARGE: VITAL SIGNS: Please see below. GENERAL: Alert, comfortable, in no acute distress HEENT: Normocephalic, atraumatic, PERRLA, EOMI, moist mucous membranes CARDIOVASCULAR: Regular rate and rhythm, normal S1 and S2. No murmurs, rubs, or gallops RESPIRATORY: Clear to auscultation bilaterally with equal air entry bilaterally. No wheezing, rhonchi, or rales. ABDOMEN: Soft, nondistended, bowel sounds present, tenderness over the suprapubic region. Bilateral CVA tenderness present. EXTREMITIES: No cyanosis or edema. Pulses 2+/4 in bilateral upper and lower extremities SKIN: [place], warm, dry NEUROLOGIC: Alert and oriented x3 to person, place and time. No focal deficits appreciated PSYCHIATRIC: Mood and affect appropriate LABORATORY DATA: Please see below. IMAGING: -CT abdomen/pelvis: Findings consistent with bilateral pyelonephritis and a sm all amount of free fluid, as described in full report. PROGNOSIS: Fair ACTIVITY: As tolerated. DIET: As tolerated DISCHARGE PLAN: Home with oral antibiotics DISPOSITION: 01 Home, Self-Care. DISCHARGE INSTRUCTIONS: 1. Follow up with PCP in 7-10 days. 2. Repeat urinalysis after completing full course of antibiotics ITEMS TO FOLLOWUP ON ON OUTPATIENT: 1.. Pyelonephritisreceived 2 days of IV ceftriaxone inpatient and given 10 day course of Levaquin to complete after discharge DISCHARGE CONDITION: Stable. TIME SPENT ON DISCHARGE: Greater than 35 minutes. Vital Signs/I&Os Vital Signs Date Time Temp Pulse Resp B/P (MAP) Pulse Ox O2 Delivery O2 Flow Rate FiO2 01/22/20 08:49 18 01/22/20 08:00 98.8 78 134/85 (101) 99 Room Air I&O- Last 24 Hours up to 6 AM 01/22/20 06:00 Intake Total 4940 ml Output Total 3275 ml Balance 1665 ml Laboratory Data Labs 24H Laboratory Tests 2 01/22/20 07:39: Immature Granulocyte % (Auto) 0.9, Neutrophils (%) (Auto) 75.8H, Lymphocytes (%) (Auto) 12.8L, Monocytes (%) (Auto) 9.1H, Eosinophils (%) (Auto) 1.2, Basophils (%) (Auto) 0.2, Neutrophils # (Auto) 4.9, Lymphocytes # (Auto) 0.8L, Monocytes # (Auto) 0.6, Eosinophils # (Auto) 0.1, Basophils # (Auto) 0.0, Nucleated Red Blood Cells % (auto) 0.0, Anion Gap 7L, Glomerular Filtration Rate > 60.0, Calcium Level 7.6L, Magnesium Level 1.4L CBC/BMP Laboratory Tests 01/22/20 07:39 Microbiology Microbiology 01/20/20 Blood Culture - Preliminary, Resulted No Growth after 48 hours. All Specime... 01/20/20 Blood Culture - Preliminary, Resulted No Growth after 48 hours. All Specime... 01/19/20 Blood Culture - Final, Complete Escherichia Coli 01/19/20 Blood Culture - Preliminary, Resulted No Growth after 72 hours. All specime... 01/19/20 Gram Stain - Final, Complete 01/19/20 Urine Culture - Final, Complete Escherichia Coli 01/19/20 Urine Culture - Final, Complete Escherichia Coli Discharge Medications Scheduled Levofloxacin (Levofloxacin) 500 Mg Tablet, 1 TAB PO DAILY Allergies Coded Allergies: No Known Allergies (Verified Allergy, Unknown, 01/03/19) ROSALIE DING D.O. Jan 22, 2020 17:56
== END 2020-01-22 12:22 | disposition home or self-care (01) | DRG 720 ==
LOC: M ED 09:31 → M ED INP 12:05 → ENRESERV 14:26 → M PED 16:15
PROVIDERS: ADMIT Internal Medicine; ATTEND Internal Medicine
DX: A41.9 Sepsis, unspecified organism (principal); E83.42 Hypomagnesemia; N10 Acute pyelonephritis; F10.10 Alcohol abuse, uncomplicated; F17.200 Nicotine dependence, unspecified, uncomplicated

== ENCOUNTER 2020-03-28 18:21 | Emergency (ER) | payer OTHER ==
[~2020-03-28] VITALS: Ht 167.6 cm; Wt 52.0 kg
[~2020-03-28 18:21] MED LIST changes: +LEVO500T3 PO
[2020-03-28] MEDS ORDERED: NS 1,000 ML IV ONE (19:30)
[2020-03-28] MEDS ORDERED: ONDANSETRON 4MG/2ML VIAL IV ONE (20:00)
[2020-03-28] MEDS ORDERED: cefTRIAXone SOD 1 GM in D5W MINI-BAG PLUS 50 ML IV ONE (20:00)
[2020-03-28 20:03] LABS: BASO # 0.1 10^3/uL (0.0-0.2); BASO % 0.4 % (0.0-1.0); EOS # 0.1 10^3/uL (0.0-0.5); EOS % 0.3 % (0.0-3.0); HEMATOCRIT 47.1 % (36.0-47.0); HEMOGLOBIN 15.8 g/dl (12.0-15.5); LYMPH # 0.9 10^3/uL (1.5-5.0); LYMPH % 6.2 % (24.0-44.0); MEAN CORPUSCULAR HEMOGLOBIN 29.9 pg (27.0-33.0); MEAN CORPUSCULAR HGB CONC 33.5 g/dl (32.0-36.5); MEAN CORPUSCULAR VOLUME 89.2 fl (80.0-96.0); MONO # 0.9 10^3/uL (0.0-0.8); MONO % 5.9 % (0.0-5.0); NEUTROPHILS # 13.1 10^3/uL (1.5-8.5); NEUTROPHILS % 86.7 % (36.0-66.0); PLATELET COUNT, AUTOMATED 248 10^3/uL (150-450); RED BLOOD COUNT 5.28 10^6/uL (4.00-5.40); WHITE BLOOD COUNT 15.2 10^3/uL (4.0-10.0)
[2020-03-28 20:15] LABS: AMPHETAMINES LEVEL URINE NEGATIVE (NEGATIVE); BARBITURATES URINE NEGATIVE (NEGATIVE); BENZODIAZEPINES URINE NEGATIVE (NEGATIVE); CANNABINOIDS URINE NEGATIVE (NEGATIVE); COCAINE METABOLITE URINE NEGATIVE (NEGATIVE); METHADONE URINE NEGATIVE (NEGATIVE); OPIATES URINE NEGATIVE (NEGATIVE); PHENCYCLIDINE URINE NEGATIVE (NEGATIVE)
[2020-03-28 20:29] LABS: ALBUMIN 3.4 GM/DL (3.2-5.2); BILIRUBIN,DIRECT 0.1 MG/DL (0.0-0.2); BILIRUBIN,TOTAL 0.7 MG/DL (0.2-1.0); TOTAL PROTEIN 7.2 GM/DL (6.4-8.2)
[2020-03-28] MEDS ORDERED: KETOROLAC 30 MG/ML 1ML VIAL IV ONE (20:30)
[2020-03-28] MEDS ORDERED: LEVA750T7 PO (20:56)
[2020-03-28] MEDS ORDERED: REGL10TA6 PO (20:56)
[2020-03-28 21:04] VITALS: BP 121/66
== END 2020-03-28 21:07 | disposition home or self-care (01) ==
LOC: M ED 18:21
DX: N10 Acute pyelonephritis (principal); F17.200 Nicotine dependence, unspecified, uncomplicated
CPT/HCPCS: 80047; 80076; 80307; 81001; 83605; 83690; 84702; 85025; 87040; 87077; 87088; 87186; 96365; 96375; 99284; J0696; J1885; J2405

== ENCOUNTER 2020-03-31 12:22 | Inpatient (IN) | payer OTHER ==
[~2020-03-31] VITALS: Ht 167.6 cm; Wt 51.7 kg
[~2020-03-31 12:22] MED LIST changes: +LEVA750T7 PO; +REGL10TA6 PO
[2020-03-31] MEDS ORDERED: NS 1,550 ML in IV 1 EA IV ONE (13:15)
[2020-03-31] MEDS ORDERED: cefTRIAXone SOD 1 GM in D5W MINI-BAG PLUS 50 ML IV ONE (13:15)
[2020-03-31 13:35] LABS: BASO % 0.4 % (0.0-1.0); EOS # 0.2 10^3/uL (0.0-0.5); EOS % 1.9 % (0.0-3.0); HEMATOCRIT 43.2 % (36.0-47.0); HEMOGLOBIN 14.2 g/dl (12.0-15.5); LYMPH # 1.3 10^3/uL (1.5-5.0); LYMPH % 13.4 % (24.0-44.0); MEAN CORPUSCULAR HEMOGLOBIN 30.3 pg (27.0-33.0); MEAN CORPUSCULAR HGB CONC 32.9 g/dl (32.0-36.5); MEAN CORPUSCULAR VOLUME 92.1 fl (80.0-96.0); MONO # 0.9 10^3/uL (0.0-0.8); MONO % 9.1 % (0.0-5.0); NEUTROPHILS # 7.1 10^3/uL (1.5-8.5); NEUTROPHILS % 74.3 % (36.0-66.0); PLATELET COUNT, AUTOMATED 247 10^3/uL (150-450); RED BLOOD COUNT 4.69 10^6/uL (4.00-5.40); WHITE BLOOD COUNT 9.6 10^3/uL (4.0-10.0)
[2020-03-31] MEDS ORDERED: ONDANSETRON 4MG/2ML VIAL IV ONE (13:45)
[2020-03-31] MEDS ORDERED: MORPHINE 2 MG/ML 1ML VIAL (J2270) IV ONE (13:45)
[2020-03-31 15:12] LABS: ALBUMIN 2.9 GM/DL (3.2-5.2); ALT/SGPT 13 U/L (12-78); BILIRUBIN,TOTAL 0.3 MG/DL (0.2-1.0); BLOOD UREA NITROGEN 6 MG/DL (7-18); CALCIUM LEVEL 8.7 MG/DL (8.5-10.1); CARBON DIOXIDE LEVEL 26 MEQ/L (21-32); CHLORIDE LEVEL 109 MEQ/L (98-107); CREATININE FOR GFR 0.59 MG/DL (0.55-1.30); GLOMERULAR FILTRATION RATE > 60.0 (>60); GLUCOSE, FASTING 85 MG/DL (70-100); POTASSIUM SERUM 4.3 MEQ/L (3.5-5.1); SODIUM LEVEL 141 MEQ/L (136-145); TOTAL PROTEIN 6.5 GM/DL (6.4-8.2)
--- NOTE | 2020-03-31 15:12 | REPVR ---
PROCEDURE INFORMATION: Exam: US Retroperitoneal Limited, Kidneys Exam date and time: 03/31/2020 2:59 PM Age: 29 years old Clinical indication: Screening exam; Other: Eval for pyelo; Additional info: Eval for pyelonephritis, fever/leukocytosis +bc TECHNIQUE: Imaging protocol: Real-time ultrasound of the retroperitoneum with image documentation. Examination was focused on the kidneys. COMPARISON: CT ABD/PEL W/IV CONTRAST ONLY 01/19/2020 10:55 AM FINDINGS: Right kidney: Right kidney measures 11.1 cm in length. No hydronephrosis, or perinephric fluid. 6 x 5 x 5 mm nodular hyperechoic lesion in the mid pole of the right kidney, without acoustic shadowing. Left kidney: Left kidney measures 13.3 cm in length. No hydronephrosis or perinephric fluid. Poorly characterized 12 x 7 x 11 nodular lesion in the lateral left kidney with combined hypoechoic and hyperechoic components. Bladder: Normal bladder morphology. IMPRESSION: 1. Small benign appearing bilateral renal lesions, which can be re-evaluated on 6 month follow-up ultrasound or CT to assess interval stability. 2. No hydronephrosis or perinephric fluid. COMMENTS: Consistent with the [employer]'s Incidental Findings Committee white paper (J Am Abimael Radiol 2018): Any incidental renal lesion less than 1.0 cm or classified as too small to characterize, or any incidental cystic renal lesion characterized as simple-appearing, is likely benign. No follow-up imaging is recommended for these lesions per consensus recommendations based on imaging criteria. Electronically signed by: Mono Darnell On 03/31/2020 15:11:46 PM
--- NOTE | 2020-03-31 17:24 | HPEPDOC ---
[facility] Medical History & Physical Date of Admission Mar 31, 2020 Date of Service: Mar 31, 2020 Attending Physician: POLI FERNANDEZ MD History and Physical CHIEF COMPLAINT: left flank/cva pain HISTORY OF PRESENT ILLNESS: 29 y/o F with PMHx recurrent UTIs since age of 15, recently hospitalized for pyelonephritis, and called back to ED for +Bld cx. Pt states she has not been feeling back to her baseline despite taking her abx. Denies CP/sob/palpitations. No N/V. Pt notes left flank and cva pain. PAST MEDICAL HISTORY: As per HPI PAST SURGICAL HISTORY: Appendicitis and facial reconstruction (kicked in face by horse) SOCIAL HISTORY: Smokes 3cigars/day. Denies tobacco/illicit drugs. FAMILY HISTORY: Non contributory ALLERGIES: Please see below. REVIEW OF SYSTEMS: HEENT: Denies sore throat/headache CARDIOVASCULAR: Denies chest pain/palpitations RESPIRATORY: Denies shortness of breath/cough GASTROINTESTINAL: denies nausea/vomiting GENITOURINARY: Denies + dysuria/urinary urgency. MUSCULOSKELETAL: Denies myalgias/arthralgias NEUROLOGICAL: Denies any focal weakness HOME MEDICATIONS: Please see below. PHYSICAL EXAMINATION: Vitals: (see below) General: No acute distress, laying comfortably in bed. HEENT: Moist mucous membranes. Neck: No JVD or lymphadenopathy Cardiac: RRR, No murmurs Pulm: Clear to auscultation b/l. No wheezing, rhonchi Abd: NT/ND + BS. Left flank TTP; left cva tenderness. Ext: No edema or cyanosis LABORATORY DATA: See below. IMAGING: Renal u/s IMPRESSION: 1. Small benign appearing bilateral renal lesions, which can be re-evaluated on 6 month follow-up ultrasound or CT to assess interval stability. 2. No hydronephrosis or perinephric fluid ASSESSMENT/PLAN: 1. B/l pyelonephritis with E. coli bacteremia. Decreased PO intake. WBC wnl, no leukocytosis. Start Rocephin 1g IV daily from prior sensitivities. Repeat bld cx. 2. bl renal lesions - f/u with Urology outpt. 3. tobacco abuse- cessation counseling. nicotine patch. DVT Prophy: Enoxaparin. Vital Signs Vital Signs Date Time Temp Pulse Resp B/P (MAP) Pulse Ox O2 Delivery O2 Flow Rate FiO2 03/31/20 14:39 18 98 Room Air 03/31/20 12:41 03/31/20 12:22 97.4 102 Laboratory Data Labs 24H Laboratory Tests 2 03/31/20 12:36: Urine Color YELLOW, Urine Appearance HAZY, Urine pH 6.0, Urine Specific [place] 1.016, Urine Protein NEGATIVE, Urine Glucose (UA) NEGATIVE, Urine Ketones TRACEH, Urine Blood NEGATIVE, Urine Nitrite NEGATIVE, Urine Bilirubin 2+H, Urine Urobilinogen 4.0H, Urine Leukocyte Esterase 2+H, Urine WBC (Auto) 33H, Urine RBC (Auto) 12H, Urine Hyaline Casts (Auto) 0, Urine Bacteria (Auto) NEGATIVE, Urine Squamous Epithelial Cells 17, Urine Calcium Oxalate Cryst (Auto) MODERATE, Urine Sperm (Auto) 03/31/20 13:11: Immature Granulocyte % (Auto) 0.9, Neutrophils (%) (Auto) 74.3H, Lymphocytes (%) (Auto) 13.4L, Monocytes (%) (Auto) 9.1H, Eosinophils (%) (Auto) 1.9, Basophils (%) (Auto) 0.4, Neutrophils # (Auto) 7.1, Lymphocytes # (Auto) 1.3L, Monocytes # (Auto) 0.9H, Eosinophils # (Auto) 0.2, Basophils # (Auto) 0.0, Nucleated Red Blood Cells % (auto) 0.0, Anion Gap 6L, Glomerular Filtration Rate > 60.0, Lactic Acid Level 1.4, Calcium Level 8.7, Total Bilirubin 0.3#, Aspartate Amino Transf (AST/SGOT) 11, Alanine Aminotransferase (ALT/SGPT) 13, Alkaline Phosphatase 90, Total Protein 6.5, Albumin 2.9L, Albumin/Globulin Ratio 0.8L CBC/BMP Laboratory Tests 03/31/20 13:11 Microbiology Microbiology 03/31/20 Urine Culture, Received Pending Home Medications Scheduled Levofloxacin (Levaquin) 750 Mg Tablet, 1 TAB PO DAILY Scheduled PRN Metoclopramide HCl (Reglan) 10 Mg Tablet, 10 MG PO Q6H PRN for NAUSEA Allergies Coded Allergies: No Known Allergies (Verified Allergy, Unknown, 01/03/19) A-FIB/CHADSVASC A-FIB History Current/History of A-Fib/PAF?: No POLI FERNANDEZ MD Mar 31, 2020 17:23
[2020-03-31 18:41] LABS: HCG, SERUM QUALITATIVE NEGATIVE (NEGATIVE)
--- NOTE | 2020-03-31 19:27 | REPVR ---
PROCEDURE INFORMATION: Exam: CT Abdomen And Pelvis Without Contrast Exam date and time: 03/31/2020 7:17 PM Age: 29 years old Clinical indication: Abdominal pain; Localized; Left; Additional info: Left CVA tenderness; Re-eval pyelonephritis TECHNIQUE: Imaging protocol: Computed tomography of the abdomen and pelvis without contrast. Radiation optimization: All CT scans at this facility use at least one of these dose optimization techniques: automated exposure control; mA and/or kV adjustment per patient size (includes targeted exams where dose is matched to clinical indication); or iterative reconstruction. COMPARISON: CT ABD/PEL W/IV CONTRAST ONLY 01/19/2020 10:55 AM FINDINGS: Liver: Normal. No mass. Gallbladder and bile ducts: Normal. No calcified stones. No ductal dilation. Pancreas: Normal. No ductal dilation. Spleen: Normal. No splenomegaly. Adrenals: Normal. No mass. Kidneys and ureters: Right renal contour unremarkable. Left kidney is enlarged with inflammatory changes in the left perinephric space, findings consistent with reported history of pyelonephritis. Stomach and bowel: There is gastric distention with retained secretions. Clinical correlation to exclude gastroparesis or gastric outlet obstruction suggested. There is increased feces throughout the colon consistent with constipation. Appendix: No evidence of appendicitis. Intraperitoneal space: Unremarkable. No free air. No significant fluid collection. Vasculature: Unremarkable. No abdominal aortic aneurysm. Lymph nodes: Unremarkable. No enlarged lymph nodes. Urinary bladder: Unremarkable as visualized. Reproductive: Unremarkable as visualized. Bones/joints: Unremarkable. No acute fracture. Soft tissues: Unremarkable. IMPRESSION: 1. There is gastric distention with retained secretions. Clinical correlation to exclude gastroparesis or gastric outlet obstruction suggested. 2. Right renal contour unremarkable. Left kidney is enlarged with inflammatory changes in the left perinephric space, findings consistent with reported history of pyelonephritis. 3. There is increased feces throughout the colon consistent with constipation. Electronically signed by: Kris Son On 03/31/2020 19:27:01 PM
[2020-03-31] MEDS: MORPHINE 2 MG/ML 1ML VIAL (J2270) IV PRN (21:17)
[2020-03-31 22:00] VITALS: BP 100/62
[2020-04-01] MEDS ORDERED: ACETAMINOPHEN *IV* 1,000 MG in IV 1 EA IV ONE (02:15)
[2020-04-01 02:16] VITALS: BP 105/50
[2020-04-01 06:00] VITALS: BP 104/61
[2020-04-01 07:05] LABS: HEMATOCRIT 37.8 % (36.0-47.0); MEAN CORPUSCULAR HEMOGLOBIN 29.7 pg (27.0-33.0); MEAN CORPUSCULAR VOLUME 92.9 fl (80.0-96.0); PLATELET COUNT, AUTOMATED 195 10^3/uL (150-450); RED BLOOD COUNT 4.07 10^6/uL (4.00-5.40); WHITE BLOOD COUNT 8.1 10^3/uL (4.0-10.0)
[2020-04-01 07:21] LABS: HEMOGLOBIN 12.1 g/dl (12.0-15.5)
[2020-04-01] MEDS: ONDANSETRON 4MG/2ML VIAL IV PRN (07:27)
[2020-04-01 07:33] LABS: ALBUMIN 2.2 GM/DL (3.2-5.2); ALT/SGPT 11 U/L (12-78); BILIRUBIN,TOTAL 0.2 MG/DL (0.2-1.0); BLOOD UREA NITROGEN 4 MG/DL (7-18); CARBON DIOXIDE LEVEL 25 MEQ/L (21-32); CHLORIDE LEVEL 112 MEQ/L (98-107); CREATININE FOR GFR 0.53 MG/DL (0.55-1.30); GLOMERULAR FILTRATION RATE > 60.0 (>60); GLUCOSE, FASTING 80 MG/DL (70-100); SODIUM LEVEL 141 MEQ/L (136-145); TOTAL PROTEIN 5.3 GM/DL (6.4-8.2)
[2020-04-01] MEDS: NS 1,000 ML IV SCH ×2 (09:14→21:28)
[2020-04-01] MEDS: METOCLOPRAMIDE INJ 10MG/2ML VIAL (J2765 PER 1) IV SCH ×2 (09:14→16:37)
[2020-04-01] MEDS: ENOXAPARIN 40MG/0.4ML SYRINGE (J1650 PER 10MG) SC SCH (09:14)
--- NOTE | 2020-04-01 12:51 | IPNPDOC ---
Text Note Date of Service The patient was seen on 04/01/20. NOTE Subjective: Pt feeling better. No BM. No abd pain. No N/V. CVA pain improving. No CP/SOB. PHYSICAL EXAMINATION: Vitals: (see below) General: No acute distress, laying comfortably in bed. HEENT: Moist mucous membranes. Neck: No JVD or lymphadenopathy Cardiac: RRR, No murmurs Pulm: Clear to auscultation b/l. No wheezing, rhonchi Abd: NT/ND + BS. No flank pain. Left cva tenderness improved. Ext: No edema or cyanosis LABORATORY DATA: See below. IMAGING: Renal u/s IMPRESSION: 1. Small benign appearing bilateral renal lesions, which can be re-evaluated on 6 month follow-up ultrasound or CT to assess interval stability. 2. No hydronephrosis or perinephric fluid CT Abd/pelvis IMPRESSION: 1. There is gastric distention with retained secretions. Clinical correlation to exclude gastroparesis or gastric outlet obstruction suggested. 2. Right renal contour unremarkable. Left kidney is enlarged with inflammatory changes in the left perinephric space, findings consistent with reported history of pyelonephritis. 3. There is increased feces throughout the colon consistent with constipation. ASSESSMENT/PLAN: 1. B/l pyelonephritis with E. coli bacteremia. Decreased PO intake. WBC wnl, no leukocytosis. Start Rocephin 1g IV daily from prior sensitivities. Repeat bld cx pending 2. bl renal lesions - f/u with Urology outpt. 3. tobacco abuse- cessation counseling. nicotine patch. 4. Gastric distension - started on reglan. d/c opioids. 5. Constipation - bowel regimen ordered. DVT Prophy: Enoxaparin. VS,Fishbone, I+O VS, Fishbone, I+O Laboratory Tests 03/31/20 13:11 04/01/20 06:50 Vital Signs Date Time Temp Pulse Resp B/P (MAP) Pulse Ox O2 Delivery O2 Flow Rate FiO2 04/01/20 06:00 98.0 61 18 104/61 (75) 100 Room Air I&O- Last 24 Hours up to 6 AM 04/01/20 06:00 Intake Total 1910 ml Balance 1910 ml POLI FERNANDEZ MD Apr 01, 2020 12:51
[2020-04-01] MEDS: MORPHINE 2 MG/ML 1ML VIAL (J2270) IV PRN (12:55)
[2020-04-01] MEDS ORDERED: cefTRIAXone SOD 1 GM in D5W MINI-BAG PLUS 50 ML IV SCH (13:00)
[2020-04-01 14:00] VITALS: BP 98/49
[2020-04-01] MEDS ORDERED: MAGNESIUM CITRATE 300 ML BTL PO ONE (16:30)
[2020-04-01 18:00] VITALS: BP 105/56
[2020-04-01 22:00] VITALS: BP 105/61
[2020-04-02] MEDS: METOCLOPRAMIDE INJ 10MG/2ML VIAL (J2765 PER 1) IV SCH ×2 (00:32→08:23)
[2020-04-02 02:00] VITALS: BP 114/75
[2020-04-02] MEDS: ONDANSETRON 4MG/2ML VIAL IV PRN (05:39)
[2020-04-02 05:56] LABS: HEMATOCRIT 36.6 % (36.0-47.0); HEMOGLOBIN 11.5 g/dl (12.0-15.5); MEAN CORPUSCULAR HGB CONC 31.4 g/dl (32.0-36.5); MEAN CORPUSCULAR VOLUME 92.4 fl (80.0-96.0); PLATELET COUNT, AUTOMATED 204 10^3/uL (150-450); RED BLOOD COUNT 3.96 10^6/uL (4.00-5.40); WHITE BLOOD COUNT 7.8 10^3/uL (4.0-10.0)
[2020-04-02 06:00] VITALS: BP 119/76
[2020-04-02 06:28] LABS: ALBUMIN 2.3 GM/DL (3.2-5.2); ALT/SGPT 11 U/L (12-78); BILIRUBIN,TOTAL 0.1 MG/DL (0.2-1.0); BLOOD UREA NITROGEN 5 MG/DL (7-18); CALCIUM LEVEL 8.3 MG/DL (8.5-10.1); CARBON DIOXIDE LEVEL 25 MEQ/L (21-32); CHLORIDE LEVEL 111 MEQ/L (98-107); CREATININE FOR GFR 0.48 MG/DL (0.55-1.30); GLOMERULAR FILTRATION RATE > 60.0 (>60); GLUCOSE, FASTING 82 MG/DL (70-100); POTASSIUM SERUM 4.1 MEQ/L (3.5-5.1); SODIUM LEVEL 143 MEQ/L (136-145); TOTAL PROTEIN 5.3 GM/DL (6.4-8.2)
[2020-04-02] MEDS ORDERED: ACETAMINOPHEN TAB 650MG DOSE (2X325MG) PO PRN (08:00)
[2020-04-02] MEDS: ENOXAPARIN 40MG/0.4ML SYRINGE (J1650 PER 10MG) SC SCH (08:24)
[2020-04-02] MEDS ORDERED: CEFD300CAP PO (08:46)
[2020-04-02 10:00] VITALS: BP 116/69
== END 2020-04-02 11:00 | disposition home or self-care (01) | DRG 724 ==
LOC: M ED 12:22 → M ED INP 17:11 → ENRESERV 18:36 → M MS5PR 19:43
PROVIDERS: ADMIT Internal Medicine; ATTEND Internal Medicine
DX: R78.81 Bacteremia (principal); N10 Acute pyelonephritis; B96.20 Unspecified Escherichia coli [E. coli] as the cause of diseases classified elsewhere; F17.210 Nicotine dependence, cigarettes, uncomplicated; K59.00 Constipation, unspecified; K63.89 Other specified diseases of intestine

== ENCOUNTER → 2022-11-29 | Outpatient (REF) | payer OTHER ==
[~2022-11-29] MED LIST changes: +CEFD300CAP PO; +LEVO1TAB39 PO; -LEVO500T3 PO
[2022-11-29 19:14] LABS: GC DNA AMPLIFICATION NEGATIVE (NEGATIVE)
== END ==
LOC: M LAB REF 16:06
PROVIDERS: ATTEND Nurse Practitioner Family
DX: Z11.9 Encounter for screening for infectious and parasitic diseases, unspecified (principal)

== ENCOUNTER → 2022-12-14 | Outpatient (REF) | payer OTHER ==
[2022-12-14 12:57] LABS: HEMOGLOBIN A1c 4.5 % (4.0-6.0)
[2022-12-14 13:15] LABS: ALBUMIN 3.7 G/DL (3.2-5.2); ALKALINE PHOSPHATASE 112 U/L (46-116); ALT/SGPT 21 U/L (7.0-40); AST/SGOT 11 U/L (<34); BILIRUBIN,DIRECT < 0.1 MG/DL (<0.4); BILIRUBIN,TOTAL 0.2 MG/DL (0.3-1.2); BLOOD UREA NITROGEN 10 MG/DL (9-23); CALCIUM LEVEL 8.1 MG/DL (8.5-10.1); CARBON DIOXIDE LEVEL 29 MMOL/L (20-31); CHLORIDE LEVEL 109 MMOL/L (98-107); CREATININE FOR GFR 0.83 MG/DL (0.55-1.30); GLOMERULAR FILTRATION RATE > 60.0 (>60); GLUCOSE, FASTING 95 MG/DL (60-100); POTASSIUM SERUM 3.7 MMOL/L (3.5-5.1); SODIUM LEVEL 140 MMOL/L (136-145); TOTAL PROTEIN 6.2 G/DL (5.7-8.2)
[2022-12-14 13:18] LABS: THYROID STIMULATING HORMONE 2.968 uIU/ML (0.55-4.78); TOTAL 25(OH) VITAMIN D 17.9 NG/ML (20.0-100.0)
== END ==
LOC: M LAB REF 12:15
PROVIDERS: ATTEND Nurse Practitioner Family
DX: R63.6 Underweight (principal); Z68.1 Body mass index [BMI] 19.9 or less, adult; R03.0 Elevated blood-pressure reading, without diagnosis of hypertension; F10.10 Alcohol abuse, uncomplicated; E55.9 Vitamin D deficiency, unspecified

== ENCOUNTER 2023-12-15 19:33 | Emergency (ER) | payer OTHER ==
[~2023-12-15] VITALS: Ht 167.6 cm; Wt 52.1 kg
[2023-12-15 20:16] LABS: BASO # 0.1 10^3/uL (0.0-0.2); BASO % 0.6 % (0.0-1.0); EOS % 0.3 % (0.0-3.0); HEMATOCRIT 35.4 % (36.0-47.0); HEMOGLOBIN 11.9 g/dl (12.0-15.5); LYMPH # 1.5 10^3/uL (1.5-5.0); MEAN CORPUSCULAR HEMOGLOBIN 29.4 pg (27.0-33.0); MEAN CORPUSCULAR HGB CONC 33.6 g/dl (32.0-36.5); MEAN CORPUSCULAR VOLUME 87.4 fl (80.0-96.0); MONO # 0.4 10^3/uL (0.0-0.8); MONO % 3.7 % (2.0-8.0); NEUTROPHILS # 9.5 10^3/uL (1.5-8.5); NEUTROPHILS % 82.1 % (36.0-66.0); PLATELET COUNT, AUTOMATED 185 10^3/uL (150-450); RED BLOOD COUNT 4.05 10^6/uL (4.00-5.40); WHITE BLOOD COUNT 11.6 10^3/uL (4.0-10.0)
[2023-12-15 20:51] LABS: HCG, SERUM QUALITATIVE NEGATIVE (NEGATIVE)
[2023-12-15 20:57] LABS: CK-MB VALUE MASS < 1.0 NG/ML (<3.6)
[2023-12-15 21:00] LABS: BLOOD UREA NITROGEN 9 MG/DL (9-23); CALCIUM LEVEL 8.4 MG/DL (8.5-10.1); CARBON DIOXIDE LEVEL 28 MMOL/L (20-31); CHLORIDE LEVEL 107 MMOL/L (98-107); CPK CREATINE PHOSPHOKINASE 60 U/L (34-145); CREATININE FOR GFR 0.74 MG/DL (0.55-1.30); GLOMERULAR FILTRATION RATE > 60.0 (>60); GLUCOSE, FASTING 108 MG/DL (60-100); MB/CK RELATIVE INDEX 1.66 (< OR =4); POTASSIUM SERUM 3.6 MMOL/L (3.5-5.1); SODIUM LEVEL 141 MMOL/L (136-145)
[2023-12-15] MEDS ORDERED: ISOVUE-370 76% 100ML VIAL As Ordered ONE (23:03)
[2023-12-15] MEDS: ASPIRIN 81MG CHEW TABLET PO ONE (23:40)
[2023-12-16 00:17] LABS: CK-MB VALUE MASS < 1.0 NG/ML (<3.6)
[2023-12-16 00:19] LABS: CPK CREATINE PHOSPHOKINASE 50 U/L (34-145)
[2023-12-16] MEDS ORDERED: NAPR-837 PO (01:02)
[2023-12-16 01:48] VITALS: BP 115/73; TEMP 97.5; O2SAT 99
== END 2023-12-16 01:49 | disposition home or self-care (01) ==
LOC: M ED 19:33
DX: R07.9 Chest pain, unspecified (principal); J98.11 Atelectasis; F32.A Depression, unspecified; F17.210 Nicotine dependence, cigarettes, uncomplicated; F12.10 Cannabis abuse, uncomplicated; R00.1 Bradycardia, unspecified; Z79.2 Long term (current) use of antibiotics; Z79.899 Other long term (current) drug therapy
CPT/HCPCS: 36415; 71275; 80048; 82550; 82553; 84484; 84703; 85025; 93005; 93041; 94760; 99284; Q9967

== ENCOUNTER 2024-04-11 13:52 | Emergency (ER) | payer OTHER ==
[~2024-04-11] VITALS: Ht 167.6 cm; Wt 50.5 kg
[~2024-04-11 13:52] MED LIST changes: +NAPR-837 PO
[2024-04-11] MEDS ORDERED: ARIP1TAB4 PO (14:04)
[2024-04-11] MEDS ORDERED: MIRT1TAB PO (14:04)
[2024-04-11] MEDS ORDERED: PRED20TA PO (14:04)
[2024-04-11] MEDS ORDERED: OSEL75CA2 PO (14:04)
[2024-04-11] MEDS ORDERED: PRAZ1CAP PO (14:04)
[2024-04-11] MEDS ORDERED: BENZ200C70 PO (18:27)
[2024-04-11] MEDS ORDERED: ALBU8.5H INH (18:27)
[2024-04-11 18:31] VITALS: BP 155/90; TEMP 99.6; O2SAT 98
== END 2024-04-11 18:36 | disposition home or self-care (01) ==
LOC: M ED 13:52
DX: R06.02 Shortness of breath (principal); B34.9 Viral infection, unspecified; F17.210 Nicotine dependence, cigarettes, uncomplicated; Z79.51 Long term (current) use of inhaled steroids; Z79.52 Long term (current) use of systemic steroids; Z79.899 Other long term (current) drug therapy

== ENCOUNTER 2024-05-25 13:51 | Inpatient (IN) | payer OTHER ==
[~2024-05-25] VITALS: Ht 167.6 cm; Wt 59.0 kg
[~2024-05-25 13:51] MED LIST changes: +ALBU8.5H INH; +ARIP1TAB4 PO; +BENZ200C70 PO; +MIRT1TAB PO; +OSEL75CA2 PO; +PRAZ1CAP PO; +PRED20TA PO
[2024-05-25] MEDS: IBUPROFEN 600MG TAB PO ONE (14:33)
[2024-05-25] MEDS: NS 1,000 ML IV ONE ×3 (14:34→20:57)
[2024-05-25 14:39] LABS: VENOUS BASE EXCESS 0.1 (-2.0-2.0); VENOUS HCO3 24.3 MMOL/L (23.0-27.0); VENOUS O2 SATURATION 86.3 % (60.0-80.0); VENOUS PARTIAL PRESSURE CO2 38.3 mmHg (38.0-50.0); VENOUS PARTIAL PRESSURE O2 49.7 mmHg (30.0-50.0); VENOUS PH 7.421 UNITS (7.330-7.430); VENOUS STANDARD HCO3 24.3 MMOL/L; VENOUS TOTAL CO2 25.5 MMOL/L (24.0-28.0)
[2024-05-25 14:47] LABS: EOS % 0.1 % (0.0-3.0); HEMATOCRIT 38.3 % (36.0-47.0); HEMOGLOBIN 12.7 g/dl (12.0-15.5); LYMPH # 0.3 10^3/uL (1.5-5.0); LYMPH % 4.1 % (24.0-44.0); MEAN CORPUSCULAR HEMOGLOBIN 28.5 pg (27.0-33.0); MEAN CORPUSCULAR HGB CONC 33.2 g/dl (32.0-36.5); MEAN CORPUSCULAR VOLUME 86.1 fl (80.0-96.0); MONO % 0.6 % (2.0-8.0); NEUTROPHILS # 6.7 10^3/uL (1.5-8.5); NEUTROPHILS % 94.9 % (36.0-66.0); PLATELET COUNT, AUTOMATED 124 10^3/uL (150-450); RED BLOOD COUNT 4.45 10^6/uL (4.00-5.40); WHITE BLOOD COUNT 7.1 10^3/uL (4.0-10.0)
[2024-05-25 15:02] LABS: ERYTHROCYTE SEDIMENTATION RATE 29 mm/hr (0-20)
[2024-05-25 15:09] LABS: ALBUMIN 3.1 G/DL (3.2-5.2); ALKALINE PHOSPHATASE 126 U/L (35-104); ALT/SGPT 25 U/L (7.0-40); AST/SGOT 22 U/L (<34); BILIRUBIN,DIRECT 0.3 MG/DL (<0.4); BILIRUBIN,TOTAL 0.8 MG/DL (0.3-1.2); BLOOD UREA NITROGEN 13 MG/DL (9-23); CALCIUM LEVEL 8.3 MG/DL (8.5-10.1); CARBON DIOXIDE LEVEL 24 MMOL/L (20-31); CHLORIDE LEVEL 107 MMOL/L (98-107); CREATININE FOR GFR 0.89 MG/DL (0.55-1.30); GLOMERULAR FILTRATION RATE > 60.0 (>60); GLUCOSE, FASTING 82 MG/DL (60-100); POTASSIUM SERUM 3.6 MMOL/L (3.5-5.1); SODIUM LEVEL 139 MMOL/L (136-145); TOTAL PROTEIN 6.2 G/DL (5.7-8.2)
[2024-05-25] MEDS ORDERED: HOME MED LIST COMPLETE! XX SCH (16:25)
[2024-05-25] MEDS: ONDANSETRON 4MG 2ML VIAL IV ONE (16:45)
[2024-05-25 16:46] LABS: HCG, SERUM QUALITATIVE NEGATIVE (NEGATIVE)
[2024-05-25] MEDS: cefTRIAXone SOD 1 GM in DEXTROSE 5% (D5W) ADV/MINI-BAG 50 ML IV ONE (17:08)
[2024-05-25] MEDS ORDERED: ISOVUE-370 76% 100ML VIAL As Ordered ONE (17:09)
[2024-05-25] MEDS: ACETAMINOPHEN *IV* 1,000 MG in IV 1 EA IV ONE (17:09)
[2024-05-25] MEDS ORDERED: MAALOX 30 ML SUSP *UDC PO PRN (20:05)
[2024-05-25] MEDS ORDERED: MOM 30ML SUSPENSION UDC PO PRN (20:05)
[2024-05-25] MEDS: SCOPOLAMINE 1MG TRANSDERMAL PATCH TOP ONE (20:56)
[2024-05-25] MEDS ORDERED: cefTRIAXone SOD 1 GM in DEXTROSE 5% (D5W) ADV/MINI-BAG 50 ML IV SCH (21:15)
[2024-05-25 22:11] LABS: HIV 1&2 SCREEN NEGATIVE (NEGATIVE)
[2024-05-25] MEDS: MORPHINE 4 MG/ML 1ML VIAL IV PRN (22:21)
[2024-05-25] MEDS: NS 1,000 ML IV SCH (22:23)
[2024-05-25] MEDS: ACETAMINOPHEN 325 MG TAB PO PRN (22:42)
[2024-05-25 23:04] VITALS: BP 92/51; O2SAT 99
[2024-05-25 23:57] VITALS: BP 98/42; TEMP 100; O2SAT 98
[2024-05-26] VITALS (42 sets, daily range): BP systolic 85–130; BP diastolic 36–86; TEMP 99.9–103.7; O2SAT 95–100
[2024-05-26] MEDS ORDERED: UNRESOLVED CLARIFICATION ENTRY XX SCH (00:01)
[2024-05-26] MEDS: NS 1,000 ML IV ONE (01:30)
[2024-05-26] MEDS: D5W/0.9% SODIUM CHLORIDE 1,000 ML IV SCH (01:31)
[2024-05-26] MEDS: cefTRIAXone SOD 1 GM in DEXTROSE 5% (D5W) ADV/MINI-BAG 50 ML IV SCH (05:27)
[2024-05-26] MEDS: ONDANSETRON 4MG 2ML VIAL IV PRN (06:18)
[2024-05-26 07:27] LABS: HEMATOCRIT 33.1 % (36.0-47.0); HEMOGLOBIN 10.9 g/dl (12.0-15.5); MEAN CORPUSCULAR HEMOGLOBIN 28.5 pg (27.0-33.0); MEAN CORPUSCULAR HGB CONC 32.9 g/dl (32.0-36.5); MEAN CORPUSCULAR VOLUME 86.6 fl (80.0-96.0); RED BLOOD COUNT 3.82 10^6/uL (4.00-5.40); WHITE BLOOD COUNT 17.3 10^3/uL (4.0-10.0)
[2024-05-26 07:57] LABS: PLATELET COUNT, AUTOMATED 75 10^3/uL (150-450)
[2024-05-26 08:24] LABS: ALBUMIN 2.3 G/DL (3.2-5.2); BILIRUBIN,TOTAL 1.1 MG/DL (0.3-1.2); CALCIUM LEVEL 6.2 MG/DL (8.5-10.1); CHOLESTEROL RISK RATIO 5.96 (<5); CREATININE FOR GFR 1.26 MG/DL (0.55-1.30); GLOMERULAR FILTRATION RATE 51.7 (>60); HDL CHOLESTEROL 23.3 MG/DL (>40); LDL CHOLESTEROL 98.1 MG/DL (<100); NON-HDL-C 115.7 MG/DL; POTASSIUM SERUM 3.8 MMOL/L (3.5-5.1); TOTAL PROTEIN 4.7 G/DL (5.7-8.2)
[2024-05-26 08:28] LABS: AMPHETAMINES LEVEL URINE NEGATIVE (NEGATIVE); METHADONE URINE NEGATIVE (NEGATIVE); OPIATES URINE NEGATIVE (NEGATIVE); PHENCYCLIDINE URINE NEGATIVE (NEGATIVE)
[2024-05-26 08:29] LABS: BARBITURATES URINE NEGATIVE (NEGATIVE); BENZODIAZEPINES URINE NEGATIVE (NEGATIVE); COCAINE METABOLITE URINE NEGATIVE (NEGATIVE)
[2024-05-26 08:58] LABS: CANNABINOIDS URINE POSITIVE (NEGATIVE)
[2024-05-26] MEDS: ACETAMINOPHEN *IV* 1,000 MG in IV 1 EA IV ONE (09:13)
[2024-05-26] MEDS: NICOTINE 21MG/24HR 1 EA TRANSDERMAL TD SCH (09:14)
[2024-05-26] MEDS: ATORVASTATIN 20 MG TAB PO SCH (09:15)
[2024-05-26] MEDS: ASPIRIN 81MG CHEW TABLET PO SCH (09:15)
[2024-05-26] MEDS: ENOXAPARIN 40MG/0.4ML SYRINGE (J1650 PER 10MG) SC SCH (09:15)
[2024-05-26] MEDS: ASPIRIN 81MG CHEW TABLET PO ONE (09:15)
[2024-05-26 09:34] LABS: HEMOGLOBIN A1c 4.8 % (4.0-6.0)
[2024-05-26] MEDS ORDERED: DEXTROSE 50% 50ML VIAL IV STA (09:39)
[2024-05-26 10:13] LABS: ABG BASE EXCESS -5.6 (-2.0-2.0); ABG HCO3 15.3 MMOL/L (22.0-26.0); ABG O2 SATURATION 97.2 % (95.0-99.0); ABG PARTIAL PRESSURE O2 85.8 mmHg (75.0-100.0); ABG STANDARD HCO3 19.8 MMOL/L. (22.0-26.0); ABG TOTAL CO2 15.9 MMOL/L (22.0-29.0); ABG pH (ARTERIAL) 7.517 UNITS (7.350-7.450)
[2024-05-26 10:16] LABS: ABG PARTIAL PRESSURE CO2 19.3 mmHg (35.0-45.0)
[2024-05-26] MEDS: DEXTROSE 50% 50ML SYRINGE IV STA (10:17)
[2024-05-26] MEDS: D10W 1,000 ML IV SCH (10:17)
[2024-05-26] MEDS: CALCIUM GLUCONATE 1,000 MG in DEXTROSE 5% (D5W) MINI-BAG PLU 100 ML IV ONE ×2 (11:03→20:47)
[2024-05-26] MEDS: VANCOMYCIN 1,000 MG/200 ML IV BAG *LOAD IV ONE (11:28)
[2024-05-26 11:56] LABS: MAGNESIUM LEVEL 0.7 MG/DL (1.8-2.4); PHOSPHORUS LEVEL 2.8 MG/DL (2.5-4.9)
[2024-05-26] MEDS: LR 1,000 ML IV ONE (12:08)
[2024-05-26] MEDS: MAG SULF 1GM/100ML (MAG RUN) 1 GM in IV 1 EA IV SCH (12:08)
[2024-05-26 12:58] LABS: PTH INTACT 95.8 PG/ML (18.5-88.0)
[2024-05-26 14:20] LABS: LYMPHOCYTES 4 % (16-44); MONOCYTES 3 % (0-5); NEUTROPHILS 82 % (28-66); PLATELET ESTIMATE DECREASED (NORMAL)
[2024-05-26 14:23] LABS: TOXIC VACUOLATION 1+
[2024-05-26 14:24] LABS: ANISOCYTOSIS 1+; POIKILOCYTOSIS 1+
[2024-05-26] MEDS: ACETAMINOPHEN *IV* 500 MG in IV 1 EA IV ONE (15:32)
[2024-05-26 16:28] LABS: HEPATITIS B SURFACE ANTIGEN NEGATIVE (NEGATIVE)
[2024-05-26] MEDS: PIPERACILLIN/TAZOBACTAM SOD 4.5 GM in DEXTROSE 5% (D5W) ADV/MINI-BAG 50 ML IV SCH (16:37)
[2024-05-26 16:48] LABS: HEPATITIS B CORE ANTIBODY IGM NEGATIVE (NEGATIVE)
[2024-05-26 17:09] LABS: HEPATITIS C VIRUS ABY INDEX 10.58 INDEX (<0.8)
[2024-05-26 17:14] LABS: INR 2.39; PARTIAL THROMBOPLASTIN TIME 87.4 SECONDS (24.8-34.2); PROTHROMBIN TIME 26.1 SECONDS (12.5-14.5)
[2024-05-26 18:59] LABS: BASO % 0.3 % (0.0-1.0); EOS # 0.2 10^3/uL (0.0-0.5); EOS % 1.2 % (0.0-3.0); HEMATOCRIT 32.3 % (36.0-47.0); HEMOGLOBIN 10.9 g/dl (12.0-15.5); LYMPH # 0.1 10^3/uL (1.5-5.0); LYMPH % 0.5 % (24.0-44.0); MEAN CORPUSCULAR HEMOGLOBIN 28.5 pg (27.0-33.0); MEAN CORPUSCULAR HGB CONC 33.7 g/dl (32.0-36.5); MEAN CORPUSCULAR VOLUME 84.3 fl (80.0-96.0); MONO # 0.1 10^3/uL (0.0-0.8); MONO % 0.7 % (2.0-8.0); NEUTROPHILS # 13.7 10^3/uL (1.5-8.5); RED BLOOD COUNT 3.83 10^6/uL (4.00-5.40); WHITE BLOOD COUNT 15.4 10^3/uL (4.0-10.0)
[2024-05-26 19:23] LABS: BILIRUBIN,DIRECT 1.5 MG/DL (<0.4); BILIRUBIN,TOTAL 1.8 MG/DL (0.3-1.2); CALCIUM LEVEL 6.2 MG/DL (8.5-10.1); CREATININE FOR GFR 1.19 MG/DL (0.55-1.30); GLOMERULAR FILTRATION RATE 55.3 (>60); MAGNESIUM LEVEL 2.3 MG/DL (1.8-2.4); POTASSIUM SERUM 3.2 MMOL/L (3.5-5.1); TOTAL PROTEIN 4.3 G/DL (5.7-8.2)
[2024-05-26 19:25] LABS: PLATELET COUNT, AUTOMATED 65 10^3/uL (150-450)
[2024-05-26] MEDS: VANCOMYCIN HCL 500 MG in DEXTROSE 5% (D5W) MINI-BAG PLU 100 ML IV SCH ×2 (20:00→23:23)
[2024-05-26] MEDS ORDERED: VANCOMYCIN 750MG/150 ML IV BAG IV SCH (20:00)
[2024-05-26] MEDS: PRAZOSIN 1 MG CAP PO SCH (21:00)
[2024-05-26] MEDS: MIRTAZAPINE 7.5MG PER 1/2 TABLET PO SCH (21:10)
[2024-05-26] MEDS: methylPREDNISolone 125MG 2ML VIAL IV ONE (23:20)
[2024-05-26 23:33] LABS: HEMATOCRIT 30.8 % (36.0-47.0); HEMOGLOBIN 10.6 g/dl (12.0-15.5); MEAN CORPUSCULAR HGB CONC 34.4 g/dl (32.0-36.5); MEAN CORPUSCULAR VOLUME 84.2 fl (80.0-96.0); RED BLOOD COUNT 3.66 10^6/uL (4.00-5.40); WHITE BLOOD COUNT 18.4 10^3/uL (4.0-10.0)
[2024-05-26 23:46] LABS: FIBRINOGEN 416 MG/DL (268-480); INR 2.16; PARTIAL THROMBOPLASTIN TIME 71.2 SECONDS (24.8-34.2); PROTHROMBIN TIME 24.2 SECONDS (12.5-14.5)
[2024-05-26 23:49] LABS: COMPLEMENT C3 51.7 MG/DL (84.0-160.0); COMPLEMENT C4 13.7 MG/DL (12-36)
[2024-05-26 23:52] LABS: PLATELET COUNT, AUTOMATED 63 10^3/uL (150-450)
[2024-05-27] VITALS (27 sets, daily range): BP systolic 78–122; BP diastolic 46–74; TEMP 97.2–101.1; O2SAT 93–100
[2024-05-27 00:24] LABS: ANISOCYTOSIS 1+; LYMPHOCYTES 4 % (16-44); MONOCYTES 5 % (0-5); NEUTROPHILS 63 % (28-66); OVALOCYTES 1+; PLATELET ESTIMATE DECREASED (NORMAL); POIKILOCYTOSIS 1+
[2024-05-27 00:25] LABS: TEAR DROP CELLS 1+
[2024-05-27 00:27] LABS: ALKALINE PHOSPHATASE 119 U/L (35-104); ALT/SGPT 56 U/L (7.0-40); AST/SGOT 77 U/L (<34); BILIRUBIN,TOTAL 1.8 MG/DL (0.3-1.2); BLOOD UREA NITROGEN 27 MG/DL (9-23); CALCIUM LEVEL 6.2 MG/DL (8.5-10.1); CARBON DIOXIDE LEVEL 17 MMOL/L (20-31); CHLORIDE LEVEL 109 MMOL/L (98-107); CREATININE FOR GFR 1.16 MG/DL (0.55-1.30); GLOMERULAR FILTRATION RATE 56.9 (>60); GLUCOSE, FASTING 101 MG/DL (60-100); POTASSIUM SERUM 2.8 MMOL/L (3.5-5.1); SODIUM LEVEL 136 MMOL/L (136-145); TOTAL PROTEIN 4.4 G/DL (5.7-8.2)
[2024-05-27] MEDS: POTASSIUM CHLORIDE 10% LIQ 20MEQ/15ML UDC PO SCH (01:26)
[2024-05-27] MEDS: KCL 10MEQ/100ML SWI (KRUN) 10 MEQ in IV 1 EA IV SCH (01:36)
[2024-05-27] MEDS: PANTOPRAZOLE 40MG VIAL IV SCH (01:40)
[2024-05-27 02:32] LABS: FERRITIN 211.7 NG/ML (7.3-270.7)
[2024-05-27 02:57] LABS: ERYTHROCYTE SEDIMENTATION RATE 32 mm/hr (0-20)
[2024-05-27] MEDS: CALCIUM GLUCONATE 1,000 MG in DEXTROSE 5% (D5W) MINI-BAG PLU 100 ML IV ONE (06:08)
[2024-05-27] MEDS: LR 1,000 ML IV ONE (06:25)
[2024-05-27] MEDS ORDERED: MEROPENEM INJ 2 GM in NS 100 ML IV SCH (07:35)
[2024-05-27] MEDS: HYDROCORTISONE 100MG/2ML VIAL IV SCH (09:01)
[2024-05-27] MEDS: MEROPENEM INJ 1 GM in IV 1 EA IV SCH (09:01)
[2024-05-27] MEDS: ARIPiprazole 2 MG TAB PO SCH (09:03)
[2024-05-27] MEDS: D5W/LR 1,000 ML IV SCH (09:10)
[2024-05-27 09:34] LABS: HEMATOCRIT 31.9 % (36.0-47.0); HEMOGLOBIN 10.7 g/dl (12.0-15.5); MEAN CORPUSCULAR HEMOGLOBIN 28.5 pg (27.0-33.0); MEAN CORPUSCULAR HGB CONC 33.5 g/dl (32.0-36.5); MEAN CORPUSCULAR VOLUME 84.8 fl (80.0-96.0); RED BLOOD COUNT 3.76 10^6/uL (4.00-5.40); WHITE BLOOD COUNT 13.7 10^3/uL (4.0-10.0)
[2024-05-27 09:38] LABS: PLATELET COUNT, AUTOMATED 58 10^3/uL (150-450)
[2024-05-27 09:40] LABS: RHEUMATOID FACTOR QUANT 10.4 IU/ML (<14)
[2024-05-27 09:42] LABS: ALBUMIN 1.9 G/DL (3.2-5.2); BILIRUBIN,DIRECT 1.2 MG/DL (<0.4); BILIRUBIN,TOTAL 1.5 MG/DL (0.3-1.2); TOTAL PROTEIN 4.5 G/DL (5.7-8.2)
[2024-05-27 09:45] LABS: INR 1.68; PARTIAL THROMBOPLASTIN TIME 60.4 SECONDS (24.8-34.2)
[2024-05-27 10:03] LABS: ALBUMIN 1.9 G/DL (3.2-5.2); ALKALINE PHOSPHATASE 117 U/L (35-104); ALT/SGPT 57 U/L (7.0-40); AST/SGOT 68 U/L (<34); BILIRUBIN,TOTAL 1.4 MG/DL (0.3-1.2); BLOOD UREA NITROGEN 23 MG/DL (9-23); CALCIUM LEVEL 6.9 MG/DL (8.5-10.1); CARBON DIOXIDE LEVEL 18 MMOL/L (20-31); CHLORIDE LEVEL 111 MMOL/L (98-107); CORTISOL BASELINE 40.6 UG/DL (4.3-22.4); CREATININE FOR GFR 0.99 MG/DL (0.55-1.30); GLOMERULAR FILTRATION RATE > 60.0 (>60); GLUCOSE, FASTING 105 MG/DL (60-100); MAGNESIUM LEVEL 2.4 MG/DL (1.8-2.4); PHOSPHORUS LEVEL 3.4 MG/DL (2.5-4.9); POTASSIUM SERUM 3.6 MMOL/L (3.5-5.1); SODIUM LEVEL 137 MMOL/L (136-145); TOTAL PROTEIN 4.4 G/DL (5.7-8.2)
[2024-05-27 10:19] LABS: METAMYELOCYTES 1 % (0-0); NEUTROPHILS 45 % (28-66)
[2024-05-27 10:20] LABS: PLATELET ESTIMATE DECREASED (NORMAL)
[2024-05-27 10:21] LABS: TOXIC VACUOLATION 1+
[2024-05-27] MEDS ORDERED: VANCOMYCIN HCL 500 MG in IV FLUID PLACE HOLDER 1 EA IV SCH (11:20)
[2024-05-27] MEDS: CLINDAMYCIN 600 MG in IV 1 EA IV SCH (11:27)
[2024-05-27] MEDS: ACETAMINOPHEN *IV* 1,000 MG in IV 1 EA IV SCH (11:32)
[2024-05-27] MEDS: NOREPINEPHRINE 4MG IN D5 250ML 4 MG in IV 1 EA IV SCH (11:44)
[2024-05-27 11:52] LABS: VANCOMYCIN RANDOM 7.4 UG/ML
[2024-05-27] MEDS: VANCOMYCIN 1,000MG/200 ML IV BAG IV SCH (12:15)
[2024-05-27] MEDS: SODIUM BICARBONATE 150 MEQ in D5W 1,000 ML IV SCH (14:27)
[2024-05-27 15:48] LABS: CLOSTRIDIUM DIFFICILE PCR NEGATIVE (NEGATIVE)
[2024-05-27 18:39] LABS: ALBUMIN 1.9 G/DL (3.2-5.2); ALKALINE PHOSPHATASE 120 U/L (35-104); ALT/SGPT 58 U/L (7.0-40); AST/SGOT 53 U/L (<34); BILIRUBIN,TOTAL 1.2 MG/DL (0.3-1.2); BLOOD UREA NITROGEN 25 MG/DL (9-23); CALCIUM LEVEL 6.8 MG/DL (8.5-10.1); CARBON DIOXIDE LEVEL 18 MMOL/L (20-31); CHLORIDE LEVEL 113 MMOL/L (98-107); CREATININE FOR GFR 0.84 MG/DL (0.55-1.30); GLOMERULAR FILTRATION RATE > 60.0 (>60); GLUCOSE, FASTING 120 MG/DL (60-100); POTASSIUM SERUM 3.5 MMOL/L (3.5-5.1); SODIUM LEVEL 139 MMOL/L (136-145); TOTAL PROTEIN 4.5 G/DL (5.7-8.2)
[2024-05-27] MEDS: LR 1,000 ML IV SCH (19:23)
[2024-05-28] VITALS (11 sets, daily range): BP systolic 90–116; BP diastolic 51–76; TEMP 97.1–98.9; O2SAT 96–99
[2024-05-28 00:16] LABS: COLD AGGLUTININS NEGATIVE (NEGATIVE)
[2024-05-28 00:22] LABS: CRYOGLOBULINS NEGATIVE (NEGATIVE)
[2024-05-28 05:04] LABS: HEMATOCRIT 25.8 % (36.0-47.0); MEAN CORPUSCULAR HEMOGLOBIN 28.8 pg (27.0-33.0); MEAN CORPUSCULAR HGB CONC 34.9 g/dl (32.0-36.5); MEAN CORPUSCULAR VOLUME 82.7 fl (80.0-96.0); RED BLOOD COUNT 3.12 10^6/uL (4.00-5.40); WHITE BLOOD COUNT 8.8 10^3/uL (4.0-10.0)
[2024-05-28 05:08] LABS: PLATELET COUNT, AUTOMATED 34 10^3/uL (150-450)
[2024-05-28 05:19] LABS: ALBUMIN 1.8 G/DL (3.2-5.2); ALKALINE PHOSPHATASE 168 U/L (35-104); ALT/SGPT 58 U/L (7.0-40); AST/SGOT 47 U/L (<34); BILIRUBIN,DIRECT 0.7 MG/DL (<0.4); BLOOD UREA NITROGEN 28 MG/DL (9-23); CALCIUM LEVEL 6.8 MG/DL (8.5-10.1); CARBON DIOXIDE LEVEL 22 MMOL/L (20-31); CHLORIDE LEVEL 112 MMOL/L (98-107); CREATININE FOR GFR 0.83 MG/DL (0.55-1.30); GLOMERULAR FILTRATION RATE > 60.0 (>60); GLUCOSE, FASTING 101 MG/DL (60-100); POTASSIUM SERUM 3.9 MMOL/L (3.5-5.1); SODIUM LEVEL 139 MMOL/L (136-145); TOTAL PROTEIN 4.3 G/DL (5.7-8.2)
[2024-05-28 05:41] LABS: LYMPHOCYTES 4 % (16-44); MONOCYTES 3 % (0-5); NEUTROPHILS 85 % (28-66)
[2024-05-28 05:42] LABS: PLATELET ESTIMATE MARKED DECREASE (NORMAL)
[2024-05-28] MEDS: HYDROCORTISONE 100MG/2ML VIAL IV SCH (08:17)
[2024-05-28 10:57] LABS: PROCALCITONIN 41.77 ng/ml
[2024-05-28] MEDS: VITAMIN D (CHOLECALCIFEROL) 400 INTERNATIONAL UNITS TAB PO SCH (11:41)
[2024-05-28 15:57] LABS: HCV RNA QUANTITATION <15 NOT DETECTED IU/mL (NOT DETECTED); HCV RNA log10 <1.18 NOT DETECTED Log IU/mL (NOT DETECTED)
[2024-05-28] MEDS: LACTOBACILLUS ACIDOPHILUS CAP (BACID) PO SCH (17:26)
[2024-05-28] MEDS: MAGNESIUM OXIDE 400MG TAB (MAG-OX) PO SCH (20:55)
[2024-05-29 00:07] VITALS: BP 125/81; TEMP 98; O2SAT 98
[2024-05-29 03:41] VITALS: BP 140/99; TEMP 98; O2SAT 97
[2024-05-29 04:59] LABS: BASO % 0.1 % (0.0-1.0); HEMATOCRIT 27.2 % (36.0-47.0); HEMOGLOBIN 9.2 g/dl (12.0-15.5); LYMPH # 1.5 10^3/uL (1.5-5.0); LYMPH % 23.1 % (24.0-44.0); MEAN CORPUSCULAR HGB CONC 33.8 g/dl (32.0-36.5); MEAN CORPUSCULAR VOLUME 82.9 fl (80.0-96.0); MONO # 0.3 10^3/uL (0.0-0.8); MONO % 4.9 % (2.0-8.0); NEUTROPHILS # 4.8 10^3/uL (1.5-8.5); NEUTROPHILS % 71.5 % (36.0-66.0); RED BLOOD COUNT 3.28 10^6/uL (4.00-5.40); WHITE BLOOD COUNT 6.7 10^3/uL (4.0-10.0)
[2024-05-29 05:05] LABS: PLATELET COUNT, AUTOMATED 34 10^3/uL (150-450)
[2024-05-29 05:26] LABS: ALKALINE PHOSPHATASE 602 U/L (35-104); ALT/SGPT 114 U/L (7.0-40); AST/SGOT 95 U/L (<34); BILIRUBIN,TOTAL 1.1 MG/DL (0.3-1.2); BLOOD UREA NITROGEN 30 MG/DL (9-23); CALCIUM LEVEL 7.9 MG/DL (8.5-10.1); CARBON DIOXIDE LEVEL 23 MMOL/L (20-31); CHLORIDE LEVEL 115 MMOL/L (98-107); CREATININE FOR GFR 0.76 MG/DL (0.55-1.30); GLOMERULAR FILTRATION RATE > 60.0 (>60); GLUCOSE, FASTING 102 MG/DL (60-100); POTASSIUM SERUM 4.2 MMOL/L (3.5-5.1); SODIUM LEVEL 141 MMOL/L (136-145); TOTAL PROTEIN 4.6 G/DL (5.7-8.2)
[2024-05-29 08:00] VITALS: BP 156/91; TEMP 98.2; O2SAT 97
[2024-05-29 15:31] VITALS: BP 144/86; TEMP 98.3; O2SAT 96
[2024-05-29 16:38] LABS: ANA PATTERN Nuclear, Homogeneous (NEGATIVE); ANA SCREEN, IFA POSITIVE (NEGATIVE); ANA TITER 1:40 titer (<1:40)
[2024-05-29 19:50] VITALS: BP 131/76; TEMP 98.3; O2SAT 97
[2024-05-30 04:28] VITALS: BP 144/74; TEMP 97.9; O2SAT 99
[2024-05-30 05:07] LABS: BASO % 0.1 % (0.0-1.0); EOS % 0.1 % (0.0-3.0); HEMATOCRIT 28.9 % (36.0-47.0); HEMOGLOBIN 9.8 g/dl (12.0-15.5); LYMPH # 2.3 10^3/uL (1.5-5.0); LYMPH % 22.6 % (24.0-44.0); MEAN CORPUSCULAR HEMOGLOBIN 28.4 pg (27.0-33.0); MEAN CORPUSCULAR HGB CONC 33.9 g/dl (32.0-36.5); MEAN CORPUSCULAR VOLUME 83.8 fl (80.0-96.0); MONO # 0.7 10^3/uL (0.0-0.8); MONO % 6.5 % (2.0-8.0); NEUTROPHILS # 7.1 10^3/uL (1.5-8.5); NEUTROPHILS % 69.8 % (36.0-66.0); RED BLOOD COUNT 3.45 10^6/uL (4.00-5.40); WHITE BLOOD COUNT 10.2 10^3/uL (4.0-10.0)
[2024-05-30 05:17] LABS: INR 0.94; PARTIAL THROMBOPLASTIN TIME 35.2 SECONDS (24.8-34.2); PROTHROMBIN TIME 12.8 SECONDS (12.5-14.5)
[2024-05-30 05:27] LABS: PLATELET COUNT, AUTOMATED 48 10^3/uL (150-450)
[2024-05-30 05:30] LABS: ALBUMIN 1.9 G/DL (3.2-5.2); ALKALINE PHOSPHATASE 696 U/L (35-104); ALT/SGPT 225 U/L (7.0-40); AST/SGOT 156 U/L (<34); BILIRUBIN,TOTAL 0.8 MG/DL (0.3-1.2); BLOOD UREA NITROGEN 27 MG/DL (9-23); CALCIUM LEVEL 7.8 MG/DL (8.5-10.1); CARBON DIOXIDE LEVEL 23 MMOL/L (20-31); CHLORIDE LEVEL 112 MMOL/L (98-107); CREATININE FOR GFR 0.69 MG/DL (0.55-1.30); GLOMERULAR FILTRATION RATE > 60.0 (>60); GLUCOSE, FASTING 103 MG/DL (60-100); POTASSIUM SERUM 4.1 MMOL/L (3.5-5.1); SODIUM LEVEL 141 MMOL/L (136-145); TOTAL PROTEIN 4.6 G/DL (5.7-8.2)
[2024-05-30] MEDS ORDERED: NS 1,000 ML IV SCH (06:55)
[2024-05-30 08:00] VITALS: BP 143/77; TEMP 98.2; O2SAT 95
[2024-05-30] MEDS: NS 0.45% 1,000 ML IV SCH (08:31)
[2024-05-30] MEDS: traMADol 50 MG TAB PO PRN (08:58)
[2024-05-30 09:15] LABS: PROCALCITONIN 7.11 ng/ml
[2024-05-30] MEDS: KETOROLAC 30 MG/ML 1ML VIAL IV ONE (11:53)
[2024-05-30 16:18] VITALS: BP 152/81; TEMP 98.1; O2SAT 99
[2024-05-30 17:08] LABS: ARSENIC BLOOD < 3 mcg/L (<23); LEAD BLOOD 1.1 mcg/dL (<3.5); MERCURY BLOOD < 4 mcg/L (<=10)
[2024-05-30 20:00] VITALS: BP 146/73; TEMP 97.7; O2SAT 96
[2024-05-31 04:00] VITALS: BP 142/74; TEMP 97.2; O2SAT 98
[2024-05-31 05:04] LABS: BASO % 0.3 % (0.0-1.0); EOS % 0.1 % (0.0-3.0); HEMATOCRIT 30.4 % (36.0-47.0); HEMOGLOBIN 10.5 g/dl (12.0-15.5); LYMPH # 2.6 10^3/uL (1.5-5.0); LYMPH % 24.1 % (24.0-44.0); MEAN CORPUSCULAR HEMOGLOBIN 28.8 pg (27.0-33.0); MEAN CORPUSCULAR HGB CONC 34.5 g/dl (32.0-36.5); MEAN CORPUSCULAR VOLUME 83.5 fl (80.0-96.0); MONO % 9.1 % (2.0-8.0); NEUTROPHILS # 6.9 10^3/uL (1.5-8.5); NEUTROPHILS % 63.6 % (36.0-66.0); RED BLOOD COUNT 3.64 10^6/uL (4.00-5.40); WHITE BLOOD COUNT 10.8 10^3/uL (4.0-10.0)
[2024-05-31 05:07] LABS: PLATELET COUNT, AUTOMATED 68 10^3/uL (150-450)
[2024-05-31 05:31] LABS: ALKALINE PHOSPHATASE 563 U/L (35-104); ALT/SGPT 161 U/L (7.0-40); AST/SGOT 56 U/L (<34); BILIRUBIN,TOTAL 0.8 MG/DL (0.3-1.2); BLOOD UREA NITROGEN 18 MG/DL (9-23); CALCIUM LEVEL 7.8 MG/DL (8.5-10.1); CARBON DIOXIDE LEVEL 24 MMOL/L (20-31); CHLORIDE LEVEL 112 MMOL/L (98-107); CREATININE FOR GFR 0.58 MG/DL (0.55-1.30); GLOMERULAR FILTRATION RATE > 60.0 (>60); GLUCOSE, FASTING 99 MG/DL (60-100); POTASSIUM SERUM 3.8 MMOL/L (3.5-5.1); SODIUM LEVEL 142 MMOL/L (136-145); TOTAL PROTEIN 4.5 G/DL (5.7-8.2)
[2024-05-31 12:00] VITALS: BP 127/76; TEMP 97.9; O2SAT 98
[2024-05-31 14:16] LABS: 25-HYDROXY VITAMIN D2 < 8 pg/mL; 25-HYDROXY VITAMIN D3 55 pg/mL; VITAMIN D 1 25 DIHYDROXY 55 pg/mL (18-72)
[2024-05-31] MEDS: VANICREAM MOISTURIZING SKIN CREAM 113GM TUBE TOP SCH (17:32)
[2024-05-31] MEDS: CIPROFLOXACIN 500MG TABLET PO SCH (18:36)
[2024-05-31] MEDS: metroNIDAZOLE (FLAGYL) 500MG TABLET PO SCH (20:32)
[2024-05-31 20:40] VITALS: BP 123/64; TEMP 97.9; O2SAT 97
[2024-06-01 03:40] VITALS: BP 136/70; TEMP 98.1; O2SAT 97
[2024-06-01 05:26] LABS: HEMATOCRIT 32.5 % (36.0-47.0); HEMOGLOBIN 10.9 g/dl (12.0-15.5); MEAN CORPUSCULAR HEMOGLOBIN 28.1 pg (27.0-33.0); MEAN CORPUSCULAR HGB CONC 33.5 g/dl (32.0-36.5); MEAN CORPUSCULAR VOLUME 83.8 fl (80.0-96.0); PLATELET COUNT, AUTOMATED 114 10^3/uL (150-450); RED BLOOD COUNT 3.88 10^6/uL (4.00-5.40); WHITE BLOOD COUNT 9.5 10^3/uL (4.0-10.0)
[2024-06-01 05:30] LABS: BASO % 0.2 % (0.0-1.0); EOS % 0.1 % (0.0-3.0); LYMPH # 2.5 10^3/uL (1.5-5.0); LYMPH % 26.1 % (24.0-44.0); MONO % 10.1 % (2.0-8.0); NEUTROPHILS # 5.6 10^3/uL (1.5-8.5)
[2024-06-01 05:39] LABS: ALKALINE PHOSPHATASE 439 U/L (35-104); ALT/SGPT 110 U/L (7.0-40); AST/SGOT 29 U/L (<34); BILIRUBIN,TOTAL 0.6 MG/DL (0.3-1.2); BLOOD UREA NITROGEN 12 MG/DL (9-23); CARBON DIOXIDE LEVEL 24 MMOL/L (20-31); CHLORIDE LEVEL 113 MMOL/L (98-107); CREATININE FOR GFR 0.56 MG/DL (0.55-1.30); GLOMERULAR FILTRATION RATE > 60.0 (>60); GLUCOSE, FASTING 103 MG/DL (60-100); POTASSIUM SERUM 3.8 MMOL/L (3.5-5.1); SODIUM LEVEL 141 MMOL/L (136-145); TOTAL PROTEIN 4.6 G/DL (5.7-8.2)
[2024-06-01] MEDS: VANICREAM MOISTURIZING SKIN CREAM 113GM TUBE TOP SCH (08:59)
[2024-06-01 12:10] VITALS: BP 145/71; TEMP 98.1; O2SAT 100
[2024-06-01 20:00] VITALS: BP 126/72; TEMP 97.9; O2SAT 97
[2024-06-01] MEDS: PANTOPRAZOLE 40MG TAB (PROTONIX) PO SCH (21:34)
[2024-06-02 04:00] VITALS: BP 150/88; TEMP 98.2; O2SAT 97
[2024-06-02 06:28] LABS: BASO % 0.2 % (0.0-1.0); HEMATOCRIT 31.2 % (36.0-47.0); HEMOGLOBIN 10.5 g/dl (12.0-15.5); LYMPH # 2.5 10^3/uL (1.5-5.0); LYMPH % 25.3 % (24.0-44.0); MEAN CORPUSCULAR HEMOGLOBIN 28.4 pg (27.0-33.0); MEAN CORPUSCULAR HGB CONC 33.7 g/dl (32.0-36.5); MEAN CORPUSCULAR VOLUME 84.3 fl (80.0-96.0); MONO % 10.1 % (2.0-8.0); NEUTROPHILS # 5.9 10^3/uL (1.5-8.5); NEUTROPHILS % 60.5 % (36.0-66.0); PLATELET COUNT, AUTOMATED 167 10^3/uL (150-450); WHITE BLOOD COUNT 9.7 10^3/uL (4.0-10.0)
[2024-06-02 06:55] LABS: ALBUMIN 2.1 G/DL (3.2-5.2); ALKALINE PHOSPHATASE 355 U/L (35-104); ALT/SGPT 89 U/L (7.0-40); AST/SGOT 21 U/L (<34); BILIRUBIN,TOTAL 0.5 MG/DL (0.3-1.2); BLOOD UREA NITROGEN 13 MG/DL (9-23); CALCIUM LEVEL 8.3 MG/DL (8.5-10.1); CARBON DIOXIDE LEVEL 26 MMOL/L (20-31); CHLORIDE LEVEL 109 MMOL/L (98-107); CREATININE FOR GFR 0.57 MG/DL (0.55-1.30); GLOMERULAR FILTRATION RATE > 60.0 (>60); GLUCOSE, FASTING 92 MG/DL (60-100); SODIUM LEVEL 141 MMOL/L (136-145); TOTAL PROTEIN 4.8 G/DL (5.7-8.2)
[2024-06-02 12:00] VITALS: BP 154/89; TEMP 98.1; O2SAT 98
[2024-06-02] MEDS: KETOROLAC 30 MG/ML 1ML VIAL IV ONE ×2 (15:43→20:16)
[2024-06-02 20:00] VITALS: BP 153/98; TEMP 98.1; O2SAT 100
[2024-06-02 20:18] VITALS: BP 153/93
[2024-06-03 04:00] VITALS: BP 126/72; TEMP 98.1; O2SAT 100
[2024-06-03 05:13] LABS: BASO % 0.3 % (0.0-1.0); HEMATOCRIT 33.1 % (36.0-47.0); HEMOGLOBIN 10.8 g/dl (12.0-15.5); LYMPH # 2.2 10^3/uL (1.5-5.0); LYMPH % 25.1 % (24.0-44.0); MEAN CORPUSCULAR HEMOGLOBIN 27.9 pg (27.0-33.0); MEAN CORPUSCULAR HGB CONC 32.6 g/dl (32.0-36.5); MEAN CORPUSCULAR VOLUME 85.5 fl (80.0-96.0); MONO # 0.8 10^3/uL (0.0-0.8); MONO % 9.6 % (2.0-8.0); NEUTROPHILS # 5.3 10^3/uL (1.5-8.5); NEUTROPHILS % 61.3 % (36.0-66.0); PLATELET COUNT, AUTOMATED 192 10^3/uL (150-450); RED BLOOD COUNT 3.87 10^6/uL (4.00-5.40); WHITE BLOOD COUNT 8.7 10^3/uL (4.0-10.0)
[2024-06-03 05:33] LABS: ALBUMIN 2.3 G/DL (3.2-5.2); ALKALINE PHOSPHATASE 327 U/L (35-104); ALT/SGPT 78 U/L (7.0-40); AST/SGOT 22 U/L (<34); BILIRUBIN,TOTAL 0.5 MG/DL (0.3-1.2); BLOOD UREA NITROGEN 17 MG/DL (9-23); CALCIUM LEVEL 8.4 MG/DL (8.5-10.1); CARBON DIOXIDE LEVEL 26 MMOL/L (20-31); CHLORIDE LEVEL 110 MMOL/L (98-107); GLOMERULAR FILTRATION RATE > 60.0 (>60); GLUCOSE, FASTING 92 MG/DL (60-100); POTASSIUM SERUM 4.3 MMOL/L (3.5-5.1); SODIUM LEVEL 142 MMOL/L (136-145); TOTAL PROTEIN 4.9 G/DL (5.7-8.2)
[2024-06-03] MEDS: LORazepam 2 MG/ML 1ML VIAL IV ONE (11:00)
[2024-06-03 12:00] VITALS: BP 160/92; TEMP 97.9; O2SAT 99
[2024-06-03] MEDS ORDERED: RISATAB3 PO (16:07)
[2024-06-03] MEDS ORDERED: METR-265 PO (16:07)
[2024-06-03] MEDS ORDERED: MAGN400T2 PO (16:07)
[2024-06-03] MEDS ORDERED: CIPR500T39 PO (16:07)
== END 2024-06-03 17:26 | disposition home or self-care (01) | DRG 720 ==
LOC: M ED 13:51 → EDBD 13:51 → M ED INP 20:04 → M PCU 22:53 → M ICU 05-27 01:05 → M MSPAV 05-30 15:45
PROVIDERS: ADMIT Student in an Organized Health Care Education/Training Program; ATTEND Internal Medicine
PROC: B246ZZZ Ultrasonography of Right and Left Heart (ICD-10-PCS; principal; 2024-05-27)
DX: A41.9 Sepsis, unspecified organism (principal); R65.21 Severe sepsis with septic shock; E87.4 Mixed disorder of acid-base balance; N17.9 Acute kidney failure, unspecified; D68.9 Coagulation defect, unspecified; D69.6 Thrombocytopenia, unspecified; E88.09 Other disorders of plasma-protein metabolism, not elsewhere classified; E83.42 Hypomagnesemia; E83.51 Hypocalcemia; I82.612 Acute embolism and thrombosis of superficial veins of left upper extremity; F41.9 Anxiety disorder, unspecified; F32.A Depression, unspecified; F43.10 Post-traumatic stress disorder, unspecified; F17.200 Nicotine dependence, unspecified, uncomplicated; N39.0 Urinary tract infection, site not specified; B19.20 Unspecified viral hepatitis C without hepatic coma; R94.5 Abnormal results of liver function studies; E16.2 Hypoglycemia, unspecified; K52.9 Noninfective gastroenteritis and colitis, unspecified; E87.6 Hypokalemia; F12.20 Cannabis dependence, uncomplicated; G89.29 Other chronic pain; M54.50 Low back pain, unspecified; N12 Tubulo-interstitial nephritis, not specified as acute or chronic; F10.21 Alcohol dependence, in remission; Z79.899 Other long term (current) drug therapy; D64.9 Anemia, unspecified

== ENCOUNTER → 2024-07-10 | Outpatient (REF) | payer OTHER, MEDICAID ==
[~2024-07-10] MED LIST changes: +CIPR500T39 PO; +MAGN400T2 PO; +METR-265 PO; +RISATAB3 PO
[2024-07-10 19:04] LABS: ALKALINE PHOSPHATASE 126 U/L (35-104); ALT/SGPT 34 U/L (7.0-40); AST/SGOT 22 U/L (<34); BILIRUBIN,TOTAL 0.3 MG/DL (0.3-1.2); BLOOD UREA NITROGEN 8 MG/DL (9-23); CALCIUM LEVEL 9.2 MG/DL (8.5-10.1); CARBON DIOXIDE LEVEL 29 MMOL/L (20-31); CHLORIDE LEVEL 108 MMOL/L (98-107); CREATININE FOR GFR 0.74 MG/DL (0.55-1.30); FOLATE 8.2 NG/ML (>5.4); GLOMERULAR FILTRATION RATE > 60.0 (>60); GLUCOSE, FASTING 79 MG/DL (60-100); IRON (FE) 43 UG/DL (50-170); PERCENT SATURATION 12.6 % (13.2-45.0); POTASSIUM SERUM 4.3 MMOL/L (3.5-5.1); SODIUM LEVEL 143 MMOL/L (136-145); THYROID STIMULATING HORMONE 2.278 uIU/ML (0.55-4.78); TOTAL IRON BINDING CAPACITY 341 UG/DL (250-425); TOTAL PROTEIN 6.9 G/DL (5.7-8.2); VITAMIN B12 LEVEL 841 PG/ML (211-911)
== END ==
LOC: M LAB REF 16:26
PROVIDERS: ATTEND Nurse Practitioner Family
DX: Z68.1 Body mass index [BMI] 19.9 or less, adult (principal); R74.8 Abnormal levels of other serum enzymes; D64.9 Anemia, unspecified; R63.6 Underweight

== ENCOUNTER → 2024-09-09 | Outpatient (REF) | payer MEDICAID, OTHER | LOC: M SFHCDERM 16:57 | PROVIDERS: ATTEND Physician Assistant | DX: Z51.89 Encounter for other specified aftercare (principal) ==

== ENCOUNTER → 2024-09-12 | Outpatient (REF) | payer MEDICAID, OTHER | LOC: M SFHCDERM 17:42 | PROVIDERS: ATTEND Physician Assistant | DX: Z51.89 Encounter for other specified aftercare (principal) ==